=== PATIENT | female | born 2000 | race Caucasian/White ===

== ENCOUNTER → 2022-04-06 10:24 | Outpatient (BNVA) | payer BC, MEDICAID, SELFPAY | PROVIDERS: Visit Provider Nurse Practitioner Family | DX: Z30.019 Encounter for initial prescription of contraceptives, unspecified (principal) | CPT/HCPCS: 81025 ==

== ENCOUNTER → 2022-06-06 09:42 | Outpatient (BNVA) | payer BC, MEDICAID, SELFPAY | PROVIDERS: PCP Nurse Practitioner Family; Visit Provider Nurse Practitioner Family | DX: M25.531 Pain in right wrist (principal); M25.431 Effusion, right wrist; M25.562 Pain in left knee; M25.469 Effusion, unspecified knee; G89.29 Other chronic pain | CPT/HCPCS: 80053; 84443; 85025; 85651; 86140; 86160; 86162; 86235; 86255; 86376; 86431 ==

== ENCOUNTER 2022-06-07 14:59 | Outpatient (CLI) | payer BC, MEDICAID, SELFPAY ==
--- NOTE | 2022-06-07 15:14 | XRR_ITS ---
PROCEDURE INFORMATION: Exam: XR Right Wrist Exam date and time: 06/07/2022 3:23 PM Age: 22 years old Clinical indication: Right; Patient HX: RT wrist pain for 1-2 months, lt knee pain swelling for 4-5 months, no known trauma; Additional info: M25.531 - pain in right wrist TECHNIQUE: Imaging protocol: Radiologic exam of the right wrist. Views: 3 or more views. COMPARISON: No relevant prior studies available. FINDINGS: Bones/joints: Osseous structures are intact. Negative for fracture. Joint spaces are preserved. Soft tissues: Normal. XR/XR wrist RT min 3V* [id number] IMPRESSION: No acute findings.
--- NOTE | 2022-06-07 15:14 | XRR_ITS ---
PROCEDURE INFORMATION: Exam: XR Left Knee Exam date and time: 06/07/2022 3:23 PM Age: 22 years old Clinical indication: Left; Patient HX: RT wrist pain for 1-2 months, lt knee pain swelling for 4-5 months, no known trauma; Additional info: M25.562 - pain in left knee TECHNIQUE: Imaging protocol: Radiologic exam of the left knee. Views: 3 views. COMPARISON: No relevant prior studies available. FINDINGS: Bones/joints: Osseous structures are intact. Negative for fracture. Joint spaces are preserved. Joint effusion is present. Soft tissues: Normal. XR/XR knee LT 3V* [id number] IMPRESSION: No acute osseous abnormalities. Joint effusion present.
== END 2022-06-07 15:00 | disposition home or self-care (01) ==
PROVIDERS: PCP Nurse Practitioner Family; Visit Provider Nurse Practitioner Family
DX: M25.431 Effusion, right wrist (principal); M25.531 Pain in right wrist; G89.29 Other chronic pain; M25.469 Effusion, unspecified knee; M25.562 Pain in left knee; M25.462 Effusion, left knee
CPT/HCPCS: 73110; 73562

== ENCOUNTER 2022-07-21 13:10 | Outpatient (CLI) | payer BC, MEDICAID, SELFPAY ==
--- NOTE | 2022-07-21 13:30 | MR_ITS ---
WS: [id number] MRI LEFT KNEE NONCONTRAST TECHNIQUE: Axial PD, coronal PD fat sat, coronal PD, sagittal PD, and sagittal PD fat-sat images obta ined. CLINICAL INFORMATION: pain COMPARISON: None. FINDINGS: Palpable marker overlying the lateral LEFT thigh. Deep to the palpable marker is normal underlying so ft tissues and subcutaneous fat. No suspicious underlying abnormalities in this area. Distal quadriceps and patella tendons are intact. Hypertrophic patella. Moderate suprapatellar effusi on. Normal ACL and PCL. Prepatellar and infrapatellar soft tissue edema. Subcutaneous edema about the knee. Mild chronic thinning of the medial and lateral meniscus worse involving the medial meniscus. No acute appearing meniscal tears. Fibula head is normal in appearance. Normal medial and lateral col lateral ligaments. Normal femoral condyles and tibial plateau. Normal popliteal fossa. MR/MR knee LT wo con* [id number] IMPRESSION: 1. Normal subcutaneous soft tissues and subcutaneous fat deep to the palpable marker in distal LEFT thigh. No underlying lesions. 2. Moderate suprapatellar effusion with soft tissue edema about the joint line . Prepatellar and infrapatellar soft tissue edema. 3. Mild chronic thinning of the medial and lateral meniscus. No acute appearin g meniscal tears. 4. Normal ACL and PCL. 5. Mild chondromalacia patella. 6. Medial and lateral collateral ligaments are intact. 7. No other acute findings. Outbridge grading:
== END 2022-07-21 13:11 | disposition home or self-care (01) ==
LOC: RAD 13:15
PROVIDERS: PCP Nurse Practitioner Family; Visit Provider Orthopaedic Surgery
DX: M25.562 Pain in left knee (principal); M25.462 Effusion, left knee; M22.42 Chondromalacia patellae, left knee
CPT/HCPCS: 73721

== ENCOUNTER → 2022-09-19 08:31 | Outpatient (BNVA) | payer BC, MEDICAID, SELFPAY | PROVIDERS: PCP Nurse Practitioner Family; Referring Provider Nurse Practitioner Family; Visit Provider Nurse Practitioner Women's Health | DX: E66.9 Obesity, unspecified (principal); N92.6 Irregular menstruation, unspecified; Z12.4 Encounter for screening for malignant neoplasm of cervix | CPT/HCPCS: 81025; 82306; 83036; 84146; 84402; 84443; 88175 ==

== ENCOUNTER → 2022-09-25 11:40 | Outpatient (BNVA) | payer BC, MEDICAID, SELFPAY | PROVIDERS: PCP Nurse Practitioner Family; Visit Provider Internal Medicine Rheumatology | DX: M45.6 Ankylosing spondylitis lumbar region (principal); Z79.899 Other long term (current) drug therapy; M19.90 Unspecified osteoarthritis, unspecified site | CPT/HCPCS: 85651; 86140; 86200; 86812 ==

== ENCOUNTER → 2022-10-03 10:20 | Outpatient (BNVA) | payer BC, MEDICAID, SELFPAY | PROVIDERS: PCP Nurse Practitioner Family; Visit Provider Nurse Practitioner Women's Health | DX: Z32.00 Encounter for pregnancy test, result unknown (principal) | CPT/HCPCS: 84702 ==

== ENCOUNTER → 2022-10-05 11:45 | Outpatient (BNVA) | payer BC, MEDICAID, SELFPAY | PROVIDERS: PCP Nurse Practitioner Family; Visit Provider Nurse Practitioner Women's Health | DX: E28.2 Polycystic ovarian syndrome (principal) | CPT/HCPCS: 84702 ==

== ENCOUNTER 2022-10-18 13:06 | Emergency (ER) | payer BC, MEDICAID, SELFPAY ==
[2022-10-18 13:13] VITALS: BP 136/81; PULSE 90; RESP 18; TEMP 36.4; O2SAT 97; BMI 38.4
[2022-10-18 13:53] LABS: Basophils # 0.1 10^3/uL (0.0-0.1); Basophils % 0.8 %; Eosinophils # 0.2 10^3/uL (0.0-0.8); Eosinophils % 3.2 %; Hematocrit 44.4 % (37.0-47.0); Hemoglobin 14.6 g/dL (11.5-15.3); Lymphocytes # 1.5 10^3/uL (0.8-4.8); Lymphocytes % 23.4 %; Mean Corpuscular HGB Conc 32.9 g/dL (30.0-36.0); Mean Corpuscular Hemoglobin 28.2 pg (28.0-34.0); Mean Corpuscular Volume 85.7 fl (81-99); Mean Platelet Volume 10.4 fL (7.4-10.4); Monocytes # 0.6 10^3/uL (0.2-0.9); Monocytes % 9.3 %; Neutrophils # 4.15 10^3/uL (1.8-7.7); Neutrophils % 62.8 %; Nucleated Red Blood Cells % 0 %; Platelet Count 321 10^3/cmm (130-400); Red Blood Count 5.18 10^6/uL (4.1-5.3); Red Cell Distribution Width 11.8 % (12.1-15.1); White Blood Count 6.6 10^3/uL (4.0-10.0)
[2022-10-18 14:13] LABS: Alanine Aminotransferase 18 U/L (0-33); Albumin Level 4.2 g/dL (3.5-5.2); Alkaline Phosphatase 89 U/L (35-105); Anion Gap 14.3 (5-19); Aspartate Amino Transferase 15 U/L (0-32); Blood Urea Nitrogen 6 mg/dL (6-20); Calcium 9.3 mg/dL (8.5-10.5); Carbon Dioxide 25 mmol/L (22-29); Chloride 102 mmol/L (98-107); Globulin 2.4 g/dL (1.3-4.6); Glucose 76 mg/dL (65-115); Osmolality Calculated 280 mOsm/kg (285-295); Potassium 4.3 mmol/L (3.5-5.1); Sodium 137 mmol/L (136-145); Total Bilirubin 0.3 mg/dL (0.15-1.2); Total Protein 6.6 g/dL (6.6-8.7)
[2022-10-18 14:18] LABS: Troponin T (5th) Once 6 ng/L (0-10)
[2022-10-18 15:05] VITALS: BP 141/69; PULSE 86; RESP 16; O2SAT 96
--- NOTE | 2022-10-18 15:27 | US_ITS ---
WS: [id number] OB ultrasound, 10/18/2022 Clinical Data: for ectopic , lower abd pain Comparison: None. Findings: There is a single interuterine . heart rate is 131 beats per minute. There is a yolk sac present. The cervical length is 3.89 cm and is closed. The crown-rump length christian ured 0.9 cm. There is a small subchorionic bleed. The estimated gestational age 6w6d is with an SHASHI of approximately 06/07/2023. The left ovary measured 2.1 cm x 2.4 cm x 4.0 cm. The right ovary measured 3.7 cm x 3.6 cm x 4.5 cm. There is a small right ovarian cyst. No ovarian cy st or masses are seen. There is minimal fluid in the cul-de-sac. US/US OB <=14 wk fetus w transvag Impression: 1. Single interuterine . 2. Estimated gestational age of 6w6d with an SHASHI of 06/07/2023. 3. heart rate 131 beats per minute.
[2022-10-18 15:32] LABS: HCG Qualitative Urine. Positive (Negative)
[2022-10-18 15:39] LABS: Add Urine Microscopic? YES; Bacteria Urine 1+ /hpf; Bilirubin Urine Neg (Negative); Blood Urine Neg (Negative); Glucose Urine UA Norm (Normal); Ketones Urine Negative (Negative); Leukocyte Esterase Urine 2+ (Negative); Nitrate Urine Negative (Negative); Protein Urine Neg (Negative); RBC Urine 0-4 /hpf (0-2); Squamous Epithelial Cell Urine 25-40 /hpf (0-5); Urine Color Yellow (Yellow); Urobilinogen Urine 1 mg/dL (Negative); WBC Urine 15-25 /hpf (0-5); pH Urine 6 (5-7)
[2022-10-18 15:40] LABS: Add Urine Culture? No
--- NOTE | 2022-10-18 16:56 | W.ED.ABDPA2 ---
HPI - Abdominal Pain General: Chief Complaint: Abdominal Pain Stated Complaint: 8 wks preg/abd pain/chest pain/dizziness Time Seen by Provider: 10/18/22 13:34 History of Present Illness: 22-year-old female who is G2, P0 with an intrauterine around 6 weeks presents emergency room with multiple vague complaint including dizziness, chest pain and abdominal pain within the past 3 days rest pain with movement. Described abdominal pain as sharp sensation mostly right lower quadrant with severity of 5 out of 10. Denies any dysuria, hematuria, vaginal bleeding, leakage of fluid, flank pain or recent fall. Associated Symptoms: Denies chills, coffee ground emesis, fever(s), heartburn, hematemesis, nausea, syncope and vomiting Review of Systems General: Reports: 10 or more systems reviewed and unremarkable except in HPI and below Const: Denies: fever(s), chills or body aches Card: Reports: chest pain; Denies: palpitations, irregular heart rhythm, edema, swelling of feet/ankles, lightheadedness, syncope, pre-syncope, dyspnea on exertion or orthopnea GI: Reports: abdominal pain; Denies: nausea, vomiting, hematemesis, coffee ground emesis, dysphagia or heartburn PFSH ED PFSH: Medical History Elevated C-reactive protein Heart murmur No pertinent past medical history neghx: htn,dm,thyroid,dvt/pe PCP: Kailyn Mcintyre [facility] Oligoarthritis Surgical History Hx of appendectomy Family History Grandmother Breast cancer maternal great grandmother Mother Hypertension Heart disease Denies family history of Colon cancer Ovarian cancer Diabetes Hyperlipidemia Uterine cancer Thyroid disease Stroke Social History Smoking and tobacco status: never smoked Alcohol intake: never Physical Exam Const: COMMON NORMALS: no acute distress, average body habitus, patient oriented x3, no limitations, healthy appearing, alert and well nourished Neck/C-Spine: COMMON NORMALS: full ROM, no lymphadenopathy, supple, no meningeal signs, no JVD, Thyroid normal and No carotid bruits THYROID: Thyroid normal Chest: COMMONS NORMALS: normal inspection of the chest, normal palpation of entire chest wall, normal inspection of the breasts and normal palpation of the breasts CHEST: Yes Symmetrical chest wall rise and Yes tenderness (chest wall tenderness ) Breast/axilla inspection: Yes normal inspection of the breasts BREAST/AXILLA PALPATION: Yes normal palpation of the breasts Cardio: COMMON NORMALS: no JVD GI: COMMON NORMALS: Soft to palpation PALPATION: Yes Soft to palpation, No Firmness to palpation present (GI) and Yes Tenderness to palpation present (GI) Details: RLQ PERCUSSION: normal to percussion Extremity: COMMON NORMALS: normal to inspection, full ROM, capillary refill normal, no joint enlargement, no clubbing, cyanosis or edema, no calf tenderness and no pedal edema Neuro: COMMON NORMALS: patient oriented x3 SENSORIUM/ORIENTATION: Yes alert MENINGEAL SIGNS: Yes no meningeal signs Course Vital Signs: Vital signs: Vital Signs Temperature 97.6 F 10/18/22 13:13 Pulse Rate 86 10/18/22 15:05 Respiratory Rate 16 10/18/22 15:05 Blood Pressure 141/69 10/18/22 15:05 Pulse Oximetry 96 10/18/22 15:05 Oxygen Delivery Me thod Room Air 10/18/22 13:13 MDM - Abdominal Pain Medical Decision Making Patient made comfortable emergency room. Labs were done. Patient was done to rule out ectopic . I discussed the ultrasound finding with the patient. PCP recommended for further evaluation and treatment. Started on oral antibiotics for UTI. Differential Diagnosis Likely abdominal pain, acute appendicitis, calculus of kidney, constipation, diverticulitis, endometriosis, gastroenteritis, pancreatitis and small bowel obstruction (Ectopic , ovarian cyst, pancreatitis) Lab Data 10/18/22 13:44 10/18/22 13:44 Labs/Radiology: Radiology Impressions Obstetrics Ultrasound 10/18/22 15:27 Impression: 1. Single interuterine . 2. Estimated gestational age of 6w6d with an SHASHI of 06/07/2023. 3. heart rate 131 beats per minute. Laboratory Results WBC 6.6 10^3/uL (4.0-10.0) 10/18/22 13:44 RBC 5.18 10^6/uL (4.1-5.3) 10/18/22 13:44 Hgb 14.6 g/dL (11.5-15.3) 10/18/22 13:44 Hct 44.4 % (37.0-47.0) 10/18/22 13:44 MCV 85.7 fl (81-99) 10/18/22 13:44 MCH 28.2 pg (28.0-34.0) 10/18/22 13:44 MCHC 32.9 g/dL (30.0-36.0) 10/18/22 13:44 RDW 11.8 % (12.1-15.1) L 10/18/22 13:44 Plt Count 321 10^3/cmm (130-400) 10/18/22 13:44 MPV 10.4 fL (7.4-10.4) 10/18/22 13:44 Neut % (Auto) 62.8 % 10/18/22 13:44 Lymph % (Auto) 23.4 % 10/18/22 13:44 [place] % (Auto) 9.3 % 10/18/22 13:44 Eos % (Auto) 3.2 % 10/18/22 13:44 Baso % (Auto) 0.8 % 10/18/22 13:44 Neut # (Auto) 4.15 10^3/uL (1.8-7.7) 10/18/22 13:44 Lymph # (Auto) 1.5 10^3/uL (0.8-4.8) 10/18/22 13:44 [place] # (Auto) 0.6 10^3/uL (0.2-0.9) 10/18/22 13:44 Eos # (Auto) 0.2 10^3/uL (0.0-0.8) 10/18/22 13:44 Baso # (Auto) 0.1 10^3/uL (0.0-0.1) 10/18/22 13:44 Nucleated RBC % (auto) 0 % 10/18/22 13:44 Nucleated RBCs # 0.0 /100WBC 10/18/22 13:44 Sodium 137 mmol/L (136-145) 10/18/22 13:44 Potassium 4.3 mmol/L (3.5-5.1) 10/18/22 13:44 Chloride 102 mmol/L (98-107) 10/18/22 13:44 Carbon Dioxide 25 mmol/L (22-29) 10/18/22 13:44 Anion Gap 14.3 (5-19) 10/18/22 13:44 BUN 6 mg/dL (6-20) 10/18/22 13:44 Creatinine 0.6 mg/dL (0.5-0.9) 10/18/22 13:44 GFR Calculation 125.0 mL/min (90-130) 10/18/22 13:44 Glucose 76 mg/dL (65-115) 10/18/22 13:44 Calculated Osmolality 280 mOsm/kg (285-295) L 10/18/22 13:44 Calcium 9.3 mg/dL (8.5-10.5) 10/18/22 13:44 Total Bilirubin 0.3 mg/dL (0.15-1.2) 10/18/22 13:44 AST 15 U/L (0-32) 10/18/22 13:44 ALT 18 U/L (0-33) 10/18/22 13:44 Alkaline Phosphatase 89 U/L (35-105) 10/18/22 13:44 Troponin T Gen 5 ng/L 6 ng/L (0-10) 10/18/22 13:44 Total Protein 6.6 g/dL (6.6-8.7) 10/18/22 13:44 Albumin 4.2 g/dL (3.5-5.2) 10/18/22 13:44 Globulin 2.4 g/dL (1.3-4.6) 10/18/22 13:44 HCG, Qual Positive (Negative) H 10/18/22 15:21 Urine Color Yellow (Yellow) 10/18/22 15:21 Urine Appearance Sl cloudy (CLEAR) A 10/18/22 15:21 Urine pH 6 (5-7) 10/18/22 15:21 Ur Specific [place] 1.020 (1.005-1.030) 10/18/22 15:21 Urine Protein Neg (Negative) 10/18/22 15:21 Urine Glucose (UA) Norm (Normal) 10/18/22 15:21 Urine Ketones Negative (Negative) 10/18/22 15:21 Urine Blood Neg (Negative) 10/18/22 15:21 Urine Nitrate Negative (Negative) 10/18/22 15:21 Urine Bilirubin Neg (Negative) 10/18/22 15:21 Urine Urobilinogen 1 mg/dL (Negative) H 10/18/22 15:21 Ur Leukocyte Esterase 2+ (Negative) H 10/18/22 15:21 Urine RBC 0-4 /hpf (0-2) H 10/18/22 15:21 Urine WBC 15-25 /hpf (0-5) H 10/18/22 15:21 Ur Squamous Epith Cells 25-40 /hpf (0-5) H 10/18/22 15:21 Amorphous Sediment Not Reportable 10/18/22 15:21 Urine Bacteria 1+ /hpf (NONE) H 10/18/22 15:21 Discharge Plan Discharge Patient Disposition: Home Clinical Impression: Abdominal pain in , UTI in , Atypical chest pain Condition: Stable Prescriptions: New Macrobid 100 mg capsule 100 mg PO BID Qty: 20 0RF Discharge Orders: Discharge ED (Routine); Ordered 10/18/22 Ordered By: Philippe Javier Referrals: Georgiana Mcintyre FNP-C [Primary Care Provider] - Discharge Diet: Advance as tolerated Discharge Activity: Resume usual activity Patient Instructions: Abdominal Pain (ED), Opioid Safety, Pain Management Coding Level of Care Code ED Pickling Machine Operator for Laura Stephenson
[2022-10-18 17:00] VITALS: BP 134/89; PULSE 76; RESP 16; O2SAT 98
== END 2022-10-18 17:08 | disposition home or self-care (01) ==
PROVIDERS: Emergency Provider Family Medicine; PCP Nurse Practitioner Family
DX: O23.41 Unspecified infection of urinary tract in pregnancy, first trimester (principal); N39.0 Urinary tract infection, site not specified; Z3A.01 Less than 8 weeks gestation of pregnancy; O26.891 Other specified pregnancy related conditions, first trimester; R10.9 Unspecified abdominal pain; R07.89 Other chest pain
CPT/HCPCS: 76801; 76817; 80053; 81001; 81025; 84484; 85025; 99284

== ENCOUNTER → 2022-10-24 14:00 | Outpatient (BNVA) | payer BC, MEDICAID, SELFPAY | PROVIDERS: PCP Nurse Practitioner Family; Visit Provider Nurse Practitioner Women's Health | DX: Z34.90 Encounter for supervision of normal pregnancy, unspecified, unspecified trimester (principal); Z3A.00 Weeks of gestation of pregnancy not specified | CPT/HCPCS: 81000 ==

== ENCOUNTER → 2022-11-14 14:48 | Outpatient (BNVA) | payer BC, SELFPAY | PROVIDERS: PCP Nurse Practitioner Family; Visit Provider Obstetrics & Gynecology | DX: Z34.00 Encounter for supervision of normal first pregnancy, unspecified trimester (principal); Z3A.00 Weeks of gestation of pregnancy not specified | CPT/HCPCS: 80307; 81000; 82950; 85027; 86592; 86762; 86803; 86850; 86900; 87086; 87340; 87806 ==

== ENCOUNTER → 2022-11-26 13:35 | Outpatient (BNVA) | payer BC, SELFPAY | PROVIDERS: PCP Nurse Practitioner Family; Visit Provider Obstetrics & Gynecology | DX: O46.90 Antepartum hemorrhage, unspecified, unspecified trimester (principal); Z3A.00 Weeks of gestation of pregnancy not specified | CPT/HCPCS: 84702 ==

== ENCOUNTER → 2022-11-28 14:06 | Outpatient (BNVA) | payer BC, SELFPAY | PROVIDERS: PCP Nurse Practitioner Family; Visit Provider Nurse Practitioner Women's Health | DX: O46.90 Antepartum hemorrhage, unspecified, unspecified trimester (principal); Z3A.00 Weeks of gestation of pregnancy not specified | CPT/HCPCS: 76801 ==

== ENCOUNTER → 2022-12-20 13:52 | Outpatient (BNVA) | payer BC, SELFPAY | PROVIDERS: PCP Nurse Practitioner Family; Visit Provider Nurse Practitioner Women's Health | DX: Z34.00 Encounter for supervision of normal first pregnancy, unspecified trimester (principal) | CPT/HCPCS: 81000; 82105 ==

== ENCOUNTER 2022-12-28 15:57 | Emergency (ER) | payer BC, MEDICAID, SELFPAY ==
[2022-12-28 16:10] VITALS: BP 131/82; PULSE 90; RESP 16; TEMP 36.9; O2SAT 98; BMI 37.0
--- NOTE | 2022-12-28 18:36 | USR_ITS ---
PROCEDURE INFORMATION: Exam: US , Limited Exam date and time: 12/28/2022 6:49 PM Age: 22 years old Clinical indication: complicated by abdominal or pelvic pain; Left lower quadrant; Second trimester (14 weeks 0 days to 27 weeks 6 days); Gestational age or lmp: By US 17w3d; ; Additional info: Bleeding TECHNIQUE: Imaging protocol: Real-time ultrasound of the maternal uterus with image documentation. Exam focused on the clinical indication. COMPARISON: US OB <= 14 weeks fetus [id number] 11/28/2022 2:14 PM FINDINGS: Gestation: Single living intrauterine . heart rate: heart rate measures 133 bpm. Placenta: The placenta is posterior fundal. BIOMETRY: Estimated weight: Estimated weight measures 180 g Biparietal diameter (BPD): The biparietal diameter measures 3.82 cm and 17 weeks 5 days Head circumference (HC): The head circumference measures 14.45 cm and 17 weeks 5 days Femur length (FL): Femoral length measures 2.32 cm and 17 weeks 0 days MATERNAL: Cervix: The cervix is closed and measures 3.2 cm. Right ovary/adnexa: Right ovary measures 2.5 x 1.7 x 1.6 cm with vascular flow. Left ovary/adnexa: The left ovary measures 2.2 x 2.3 x 2.6 cm with vascular flow. Intraperitoneal space: No free fluid in the cul-de-sac. US/US OB limited [id number] IMPRESSION: 1. Single living intrauterine . 2. Cervix is closed measuring up to 3.2 cm in length. 3. The placenta is posterior fundal in location. 4. The ovaries are unremarkable with vascular flow.
--- NOTE | 2022-12-28 18:38 | W.ED.PREGNAN ---
HPI - General: Chief complaint: Vaginal Bleeding Stated complaint: 17 wks/vaginal bleeding Time Seen by Provider: 12/28/22 18:36 History of Present Illness: 22-year-old female comes in today for complaints of spotting after urination. Patient reports when she wipes after urinating she notices blood. Patient appears nontoxic. Patient reports no chills. Patient does have some nausea. Patient is approximately 17 weeks . This is patient's second no live births, 1 prior miscarriage. Patient has a history of appendicitis with removal of her appendix. Patient has a history of a subchorionic hemorrhage with this . Patient's blood type is a positive. Last time patient ate was at 10:00. Patient denies any chronic medical problems or routine medications. Associated symptoms: Reports nausea Related Data: : 2 Para: 0 Total number of abortions (spontaneous and elective): 1 Review of Systems General: Reports: 10 or more systems reviewed and unremarkable except in HPI and below Const: Denies: fever(s) Card: Denies: chest pain Resp: Denies: dyspnea GI: Reports: nausea : Reports: vaginal bleeding (Spotting) and pelvic pain (Lower abdominal cramping) PFS ED PFSH: Medical History Elevated C-reactive protein Heart murmur No pertinent past medical history neghx: htn,dm,thyroid,dvt/pe PCP: Kailyn Mcintyre [facility] Oligoarthritis Surgical History Hx of appendectomy Family History Grandmother Breast cancer maternal great grandmother Mother Hypertension Heart disease Denies family history of Colon cancer Ovarian cancer Diabetes Hyperlipidemia Uterine cancer Thyroid disease Stroke Female Reproductive History: : 2 Physical Exam Const: COMMON NORMALS: alert HENMT: COMMON NORMALS: normocephalic HEAD & SCALP: normocephalic Neck/C-Spine: COMMON NORMALS: full ROM Resp: COMMON NORMALS: normal respiratory effort and clear to auscultation bilaterally AUSCULTATION: clear to auscultation bilaterally Cardio: COMMON NORMALS: regular rate and regular rhythm RATE: regular rate RHYTHM: regular rhythm GI: COMMON NORMALS: Soft to palpation PALPATION: Yes Soft to palpation Back/Pelvis: COMMON NORMALS: thoracic and lumbar spine normal to inspection Extremity: COMMON NORMALS: normal to inspection Neuro: SENSORIUM/ORIENTATION: Yes alert Skin: COMMON NORMALS: turgor normal GENERAL SKIN EXAM: turgor normal Course Vital Signs: Vital signs: Vital Signs Temperature 98.4 F 12/28/22 16:10 Pulse Rate 90 12/28/22 16:10 Respiratory Rate 16 12/28/22 16:10 Blood Pressure 131/82 12/28/22 16:10 Pulse Oximetry 98 12/28/22 16:10 Oxygen Delivery Me thod Room Air 12/28/22 16:10 MDM - OB/Uterine Contractions Medical Decision Making 22-year-old female comes in today for complaints of noticing blood when she wipes after urination. Patient also has had some lower abdominal cramping. Patient has a history of subchorionic hemorrhage with this . Patient is approximately 17 weeks . Patient appears nontoxic. Bowel sounds are present. Skin is warm and dry. No CVA tenderness. Vital signs are normal. Differential diagnosis includes not limited to subchorionic hemorrhage, UTI, placenta previa, threatened miscarriage. Ultrasound noted a single live intrauterine with no other abnormalities. Urinalysis had positive leukocyte esterases, CBC was unremarkable. Believe patient probably has some mild cystitis. Patient was given 1 g Rocephin IM and will continue on cephalexin for 3 more days. Patient was recommended to follow-up with primary care or PERSONNEL QUALITY ASSURANCE AUDITOR in 1 week for recheck of urine. Patient was also encouraged to drink plenty of water and fluids. Discussed need to return to ER for worsening symptoms such as high fever, inability to hold fluids down, or increasing bleeding. Patient reported understanding and agreed to plan. Lab Data 12/28/22 19:19 12/28/22 19:19 Radiology Impressions Obstetrics Ultrasound 12/28/22 18:36 IMPRESSION: 1. Single living intrauterine . 2. Cervix is closed measuring up to 3.2 cm in length. 3. The placenta is posterior fundal in location. 4. The ovaries are unremarkable with vascular flow. Laboratory Results WBC 10.07 10^3/uL (3.29-11.43) 12/28/22 19:19 RBC 4.89 10^6/uL (3.85-5.65) 12/28/22 19:19 Hgb 14.60 g/dL (11.27-16.99) 12/28/22 19:19 Hct 41.5 % (36-47) 12/28/22 19:19 MCV 84.9 fl (85-98) L 12/28/22 19:19 MCH 29.9 pg (27-33) 12/28/22 19:19 MCHC 35.2 g/dL (30-55) 12/28/22 19:19 RDW 11.9 % (12.1-15.1) L 12/28/22 19:19 Plt Count 313 10^3/cmm (157-399) 12/28/22 19:19 MPV 11.1 fL (7.4-10.4) H 12/28/22 19:19 Neut % (Auto) 74.0 % 12/28/22 19:19 Lymph % (Auto) 16.3 % 12/28/22 19:19 [place] % (Auto) 6.6 % 12/28/22 19:19 Eos % (Auto) 2.3 % 12/28/22 19:19 Baso % (Auto) 0.3 % 12/28/22 19:19 Neut # (Auto) 7.46 10^3/uL (1.8-7.7) 12/28/22 19:19 Lymph # (Auto) 1.6 10^3/uL (0.8-4.8) 12/28/22 19:19 [place] # (Auto) 0.7 10^3/uL (0.2-0.9) 12/28/22 19:19 Eos # (Auto) 0.2 10^3/uL (0.0-0.8) 12/28/22 19:19 Baso # (Auto) 0.0 10^3/uL (0.0-0.1) 12/28/22 19:19 Nucleated RBC % (auto) 0 % 12/28/22 19:19 Nucleated RBCs # 0.0 /100WBC 12/28/22 19:19 Urine Color Yellow (Yellow) 12/28/22 19:11 Urine Appearance Clear (CLEAR) 12/28/22 19:11 Urine pH 5 (5-7) 12/28/22 19:11 Ur Specific [place] 1.025 (1.005-1.030) 12/28/22 19:11 Urine Protein Neg (Negative) 12/28/22 19:11 Urine Glucose (UA) Norm (Normal) 12/28/22 19:11 Urine Ketones 2+ (Negative) H 12/28/22 19:11 Urine Blood Neg (Negative) 12/28/22 19:11 Urine Nitrate Negative (Negative) 12/28/22 19:11 Urine Bilirubin Neg (Negative) 12/28/22 19:11 Urine Urobilinogen Neg mg/dL (Negative) 12/28/22 19:11 Ur Leukocyte Esterase Trace (Negative) H 12/28/22 19:11 Amorphous Sediment Not Reportable 12/28/22 19:11 All radiology interpretation(s) finalized by discharge Discharge Plan Discharge Patient Disposition: Home Clinical Impression: Cystitis, 17 weeks gestation of Condition: Stable Prescriptions: New cephalexin 500 mg capsule 500 mg PO BID 3 Days Qty: 6 0RF No Action Gummies 400 mcg-35 mg- 25 mg-5 mg tablet,chewable 1 tab PO DAILY Discharge Orders: Discharge ED (Routine); Ordered 12/28/22 Ordered By: Tone Cesar Referrals: Georgiana Mcintyre FNP-C [Primary Care Provider] - Discharge Diet: Usual diet Discharge Activity: Increase activity as tolerated Patient Instructions: Urinary Tract Infection in (ED) Activity Restrictions/Additional Instructions: Drink plenty of water and fluids. Pelvic rest until pain resolves. Take cephalexin 500 mg 1 tablet/capsule 2 times a day for 3 days. Follow-up with PERSONNEL QUALITY ASSURANCE AUDITOR or primary care in 1 week for recheck. Return to ED for worsening symptoms such as severe abdominal pain, fever greater than 100.4, inability to hold fluids down, bleeding greater than 1 pad an hour. Coding Level of Care Code ED Electric Brain Wave Equipment Mechanic for Laura Stephenson
[2022-12-28] MEDS: ondansetron 4 MG Tablet PO (19:07)
[2022-12-28 19:24] LABS: Bilirubin Urine Neg (Negative); Blood Urine Neg (Negative); Glucose Urine UA Norm (Normal); Ketones Urine 2+ (Negative); Nitrate Urine Negative (Negative); Protein Urine Neg (Negative); Specific Gravity, Urine 1.025 (1.005-1.030); Urine Appearance Clear (CLEAR); Urine Color Yellow (Yellow); Urobilinogen Urine Neg (Negative); pH Urine 5 (5-7)
[2022-12-28 19:25] LABS: Add Urine Microscopic? YES; Leukocyte Esterase Urine Trace (Negative)
[2022-12-28 19:34] LABS: Basophils % 0.3 %; Eosinophils # 0.2 10^3/uL (0.0-0.8); Eosinophils % 2.3 %; Hematocrit 41.5 % (36-47); Lymphocytes # 1.6 10^3/uL (0.8-4.8); Lymphocytes % 16.3 %; Mean Corpuscular HGB Conc 35.2 g/dL (30-55); Mean Corpuscular Hemoglobin 29.9 pg (27-33); Mean Corpuscular Volume 84.9 fl (85-98); Mean Platelet Volume 11.1 fL (7.4-10.4); Monocytes # 0.7 10^3/uL (0.2-0.9); Monocytes % 6.6 %; Neutrophils # 7.46 10^3/uL (1.8-7.7); Nucleated Red Blood Cells % 0 %; Platelet Count 313 10^3/cmm (157-399); Red Blood Count 4.89 10^6/uL (3.85-5.65); Red Cell Distribution Width 11.9 % (12.1-15.1); White Blood Count 10.07 10^3/uL (3.29-11.43)
[2022-12-28 19:44] LABS: Add Urine Culture? No; Bacteria Urine 1+ /hpf; Mucus Urine 2+ /hpf; RBC Urine 0-4 /hpf (0-2); Squamous Epithelial Cell Urine 15-25 /hpf (0-5)
[2022-12-28] MEDS: cefTRIAXone 1,000 MG in water for injection-sterile 2.1 ML 1 MG IM (19:58)
[2022-12-28 20:04] LABS: Alanine Aminotransferase 12 U/L (0-33); Albumin Level 4.1 g/dL (3.5-5.2); Alkaline Phosphatase 80 U/L (35-105); Anion Gap 14.8 (5-19); Aspartate Amino Transferase 14 U/L (0-32); Blood Urea Nitrogen 5 mg/dL (6-20); Calcium 9.2 mg/dL (8.5-10.5); Carbon Dioxide 23 mmol/L (22-29); Chloride 102 mmol/L (98-107); Glomerular Filtration Rate 154.3 mL/min (90-130); Glucose 79 mg/dL (65-115); Osmolality Calculated 278 mOsm/kg (285-295); Potassium 3.8 mmol/L (3.5-5.1); Sodium 136 mmol/L (136-145); Total Bilirubin 0.3 mg/dL (0.15-1.2); Total Protein 7.1 g/dL (6.6-8.7)
== END 2022-12-28 20:01 | disposition home or self-care (01) ==
PROVIDERS: Emergency Provider Nurse Practitioner Family; PCP Nurse Practitioner Family
DX: O23.12 Infections of bladder in pregnancy, second trimester (principal); Z3A.17 17 weeks gestation of pregnancy
CPT/HCPCS: 36415; 76815; 80053; 81001; 84315; 84702; 85025; 96372; 99284; J0696; Q0162

== ENCOUNTER → 2023-01-14 09:27 | Outpatient (BNVA) | payer BC, MEDICAID, SELFPAY | PROVIDERS: PCP Nurse Practitioner Family; Visit Provider Nurse Practitioner Women's Health | DX: Z34.92 Encounter for supervision of normal pregnancy, unspecified, second trimester (principal); Z3A.19 19 weeks gestation of pregnancy | CPT/HCPCS: 76805 ==

== ENCOUNTER → 2023-02-18 12:00 | Outpatient (BNVA) | payer BC, MEDICAID, SELFPAY | PROVIDERS: PCP Nurse Practitioner Family; Visit Provider Nurse Practitioner Women's Health | DX: Z34.00 Encounter for supervision of normal first pregnancy, unspecified trimester (principal); Z3A.00 Weeks of gestation of pregnancy not specified | CPT/HCPCS: 81000; 87491; 87591 ==

== ENCOUNTER → 2023-04-02 14:00 | Outpatient (BNVA) | payer BC, MEDICAID, SELFPAY | PROVIDERS: PCP Nurse Practitioner Family; Visit Provider Obstetrics & Gynecology | DX: Z34.00 Encounter for supervision of normal first pregnancy, unspecified trimester (principal) | CPT/HCPCS: 81000; 82950; 85025 ==

== ENCOUNTER 2023-04-08 17:45 | Outpatient (CLI) | payer BC, MEDICAID, SELFPAY ==
[2023-04-08] VITALS (13 sets, daily range): BP systolic 117–143; BP diastolic 61–85; PULSE 90–101; RESP 16–18; TEMP 35.8–36.3; BMI 39.3
[2023-04-08 18:22] LABS: Specific Gravity, Urine 1.015 (1.005-1.030); Urine Appearance Clear (CLEAR); Urine Color Straw (Yellow); pH Urine 6.5 (5-7)
[2023-04-08 18:23] LABS: Bilirubin Urine Neg (Negative); Blood Urine 2+ (Negative); Glucose Urine UA Norm (Normal); Ketones Urine Negative (Negative); Leukocyte Esterase Urine 2+ (Negative); Nitrate Urine Negative (Negative); Protein Urine Neg (Negative); Urobilinogen Urine Norm (Negative)
[2023-04-08 18:25] LABS: Add Urine Culture? Yes; Bacteria Urine TRACE /hpf; RBC Urine RARE /hpf (0-2); Squamous Epithelial Cell Urine 0-4 /hpf (0-5)
--- NOTE | 2023-04-08 18:57 | P.TNLD_ITS ---
OB L&D Triage Visit Information: Date of evaluation: 04/08/23 Comments/Additional reason(s) for visit: 22-year-old female G1, P0 at 31.3 weeks gestation, SHASHI 06/07/2023 seen on labor and delivery triage with complaints of blood noted in the stool. She admits to good movement, denies leakage of fluid or pelvic pain. Patient is currently on amoxicillin for a dental abscess. She has history of having a subchorionic hemorrhage that had some spotting early in . Pelvic exam cervix closed no blood noted in the vaginal vault. Abdomen is soft nontender to palpation. No suprapubic pressure or CVA tenderness. Reviewed urine analysis?+2 blood, pH 6.5, pH 1.015, negative glucose, leukoesterase +2 WBCs 5-10 Reviewed hematuria with leukoesterase indicating a UTI. Will treat with IV antibiotics and continue her amoxicillin which she is currently taking. Evaluation: Baseline heart rate: 130 Variability: Average (6-10) monitor accelerations: Present 15x15 monitor decelerations: None Cervical dilation (cm): 0 Laboratory results: Laboratory Tests 04/08/23 18:00 Urine Color Straw Urine Appearance Clear Urine pH 6.5 Ur Specific Gravit y 1.015 Urine Protein Neg Urine Glucose (UA) Norm Urine Ketones Negative Urine Blood 2+ H Urine Nitrate Negative Urine Bilirubin Neg Urine Urobilinogen Norm Ur Leukocyte Luciana ase 2+ H Urine RBC Rare Urine WBC 5-10 H Ur Squamous Epith Cells 0-4 H Amorphous Sediment Not Reportable Urine Bacteria Trace Vital signs: Vital Signs - 24 hr 04/08/23 18:05 04/08/23 18:25 04/08/23 18:45 Temperature 96.4 F L Pulse Rate 96 97 94 Blood Pressure 133/74 136/74 140/82 Care SHASHI Calculator Estimated Delivery Date Method Current WG Current Estimate 06/07/23 Ultrasound #1 31w 3d Other Estimates 05/08/23 LMP (Uncertain) 35w 5d Specific Issues/Plans * PCOS- needs early GCT * OBESITY * SUBCHORHIONIC BLEED Final Diagnosis Final Diagnosis (1) 31 weeks gestation of : Status: Acute Code(s): Z3A.31 - 31 weeks gestation of (2) UTI (urinary tract infection): Status: Acute Code(s): N39.0 - Urinary tract infection, site not specified (3) Subchorionic hematoma, antepartum: Status: Acute Code(s): O41.8X90 - Other specified disorders of amniotic fluid and membranes, unspecified trimester, not applicable or unspecified; O46.8X9 - Other antepartum hemorrhage, unspecified trimester (4) Supervision of normal first : Status: Acute Code(s): Z34.00 - Encounter for supervision of normal first , unspecified trimester Other Information/Follow up Plan. 1. IV fluid with Ancef 2 g IV piggyback 2. Continue amoxicillin as prescribed Coding Level of Care Code Acute Code for Chg Fwd Diagnoses 31 weeks gestation of Z3A.31 UTI (urinary tract infection) N39.0 Subchorionic hematoma, antepartum O41.8X90; O46.8X9 Supervision of normal first Z34.00
[2023-04-08] MEDS: lactated ringers 1,000 ML 999 ML IV (19:54)
[2023-04-08] MEDS: ceFAZolin 2,000 MG in sodium chloride 0.9% (plus) 50 ML 100 MG IV (19:54)
== END 2023-04-08 21:43 | disposition home or self-care (01) ==
LOC: OPOB 17:55 → OBGYN 17:56
PROVIDERS: Absent Provider Obstetrics & Gynecology; PCP Nurse Practitioner Family; Visit Provider Obstetrics & Gynecology
DX: O41.8X93 Other specified disorders of amniotic fluid and membranes, unspecified trimester, fetus 3 (principal); O46.8X3 Other antepartum hemorrhage, third trimester; Z3A.31 31 weeks gestation of pregnancy; N39.0 Urinary tract infection, site not specified
CPT/HCPCS: 59025; 81001; 87086; 99211; J0690; J7120

== ENCOUNTER → 2023-04-23 08:00 | Outpatient (BNVA) | payer BC, MEDICAID, SELFPAY | PROVIDERS: PCP Nurse Practitioner Family; Visit Provider Obstetrics & Gynecology | DX: Z34.00 Encounter for supervision of normal first pregnancy, unspecified trimester (principal); Z3A.00 Weeks of gestation of pregnancy not specified | CPT/HCPCS: 81000; 82951; 82952 ==

== ENCOUNTER → 2023-05-14 13:19 | Outpatient (BNVA) | payer BC, MEDICAID, SELFPAY | PROVIDERS: PCP Nurse Practitioner Family; Visit Provider Obstetrics & Gynecology | DX: Z34.93 Encounter for supervision of normal pregnancy, unspecified, third trimester (principal); Z3A.00 Weeks of gestation of pregnancy not specified; Z3A.35 35 weeks gestation of pregnancy | CPT/HCPCS: 76816; 84315 ==

== ENCOUNTER 2023-06-02 22:15 | Outpatient (CLI) | payer BC, MEDICAID, SELFPAY ==
[2023-06-02] VITALS (7 sets, daily range): BP systolic 114–140; BP diastolic 58–80; PULSE 92–114; TEMP 35.9; BMI 36.9
[2023-06-03] VITALS (7 sets, daily range): BP systolic 119–136; BP diastolic 63–72; PULSE 90–99; RESP 16; TEMP 35.9
== END 2023-06-03 01:05 | disposition home or self-care (01) ==
LOC: OPOB 22:19 → OBGYN 22:20
PROVIDERS: PCP Nurse Practitioner Family; Visit Provider Obstetrics & Gynecology
DX: O26.899 Other specified pregnancy related conditions, unspecified trimester (principal); Z3A.00 Weeks of gestation of pregnancy not specified; R10.9 Unspecified abdominal pain
CPT/HCPCS: 59025; 99211

== ENCOUNTER 2023-06-04 23:58 | Inpatient (IN) | payer BC, MEDICAID, SELFPAY ==
[2023-06-04] VITALS (68 sets, daily range): BP systolic 101–159; BP diastolic 52–95; PULSE 82–121; RESP 17; TEMP 36.2–36.4; O2SAT 97–100; BMI 40.3
[2023-06-04 14:42] LABS: Basophils % 0.4 %; Eosinophils # 0.1 10^3/uL (0.0-0.8); Hematocrit 40.1 % (36-47); Lymphocytes # 1.5 10^3/uL (0.8-4.8); Lymphocytes % 13.4 %; Mean Corpuscular HGB Conc 34.2 g/dL (30-55); Mean Corpuscular Hemoglobin 28.8 pg (27-33); Mean Corpuscular Volume 84.2 fl (85-98); Mean Platelet Volume 11.7 fL (7.4-10.4); Monocytes # 1.1 10^3/uL (0.2-0.9); Monocytes % 9.5 %; Neutrophils # 8.29 10^3/uL (1.8-7.7); Neutrophils % 75.2 %; Nucleated Red Blood Cells % 0 %; Platelet Count 366 10^3/cmm (157-399); Red Blood Count 4.76 10^6/uL (3.85-5.65); Red Cell Distribution Width 12.8 % (12.1-15.1); White Blood Count 11.03 10^3/uL (3.29-11.43)
[2023-06-04] MEDS: ampicillin 2,000 MG in sodium chloride 0.9% (plus) 50 ML 100 MG IV (15:07)
[2023-06-04] MEDS: oxytocin 30 UNIT/500 ML BAG IV (15:08)
[2023-06-04] MEDS: dextrose 5%-lactated ringers 1,000 ML 125 ML IV ×2 (15:08→18:46)
[2023-06-04] MEDS: ampicillin 1,000 MG in sodium chloride 0.9% (plus) 50 ML 100 MG IV ×2 (18:46→22:34)
[2023-06-04] MEDS: lactated ringers 1,000 ML 999 ML IV (21:05)
--- NOTE | 2023-06-04 22:24 | ANES.PREANE2 ---
Pre-Anesthetic Assessment Height/Weight: Height 1.63 m Weight 106.594 kg Temp Pulse BP Pulse Ox O2 Del Method 97.2 F L 115 H 125/67 100 Room Air 06/04/23 21:47 06/04/23 22:22 06/04/23 22:20 06/04/23 22:22 06/04/23 14:30 Preop Diagnosis: Labor pain LUIGI Was Beta Baldo taken within 24 hours: N/A Was Clonidine taken within 24 hours: N/A Social No alcohol and No tobacco Exam alert, oriented x 3, clear to auscultation bilaterally and regular rate & rhythm Airway Submandibular: within normal limits Cervical ROM: within normal limits Mallampati: Class II Dentition: full History/ROS No significant history except as noted and No significant complaints Pulmonary None reported CV/HEM Murmur None reported Hepatic None reported GI None reported Metabolic None reported Musc/skel None reported Neuropsych None reported Anesthetic Plan ASA status: 2 Anesthesia: Anesthesia Evaluation and Regional (specify below) (LUIGI) Risk of > 500 ml blood loss (7ml/kg in children): No Medications/Allergies Home Medications Medication Instructions Recorded Confirmed Last Taken Type PNV 153-FA 400 mcg-om3 35 mg-dha 1 tab PO DAILY 10/24/22 06/04/23 1 Day Ago History 25 mg-epa 5 mg-fish oil chew ~04/07/23 tablet ( Gummies) Allergies Allergy/AdvReac Type Severity Reaction Status Date / Time No Known Allergies Allergy Verified 05/28/23 13:45 Current Medications Generic Name Dose Route Start Last Admin Trade Name Souravq PRN Reason Stop Dose Admin Dextrose/Lactated Ringer's 1,000 mls @ 125 mls/hr 06/04/23 14:30 06/04/23 18:46 Dextrose 5%-Lactated Ringers IV 125 mls/hr .Q8H LIANA Administration Ampicillin Sodium 1,000 mg/ 50 mls @ 100 mls/hr 06/04/23 18:30 06/04/23 18:46 Sodium Chloride IV 100 mls/hr Q4H LIANA Administration Protocol Oxytocin 30 unit in 500 mls @ 1 mls/hr 06/04/23 15:00 06/04/23 17:25 Pitocin IV 12 milliunit/min .Q24H LIANA 12 mls/hr Titration Protocol 1 MILLIUNIT/MIN PFSH Anesthesia Medical History Elevated C-reactive protein Oligoarthritis No pertinent past medical history neghx: htn,dm,thyroid,dvt/pe PCP: Kailyn Mcintyre [facility] Heart murmur Surgical History Hx of appendectomy Family History Grandmother Breast cancer maternal great grandmother Mother Hypertension Heart disease Denies family history of Colon cancer Ovarian cancer Diabetes Hyperlipidemia Uterine cancer Thyroid disease Stroke Female Reproductive History : 1 Data Anesthesia 06/04/23 14:15 Short CBC 06/04/23 Range/Units 14:15 WBC 11.03 (3.29-11.43) 10^3/uL Hgb 13.70 (11.27-16.99) g/dL Hct 40.1 (36-47) % MCV 84.2 L (85-98) fl Plt Count 366 (157-399) 10^3/cmm Neut % (Auto) 75.2 % Neut # (Auto) 8.29 H (1.8-7.7) 10^3/uL Blood Bank 06/04/23 14:15 Blood Type A Positive Rho(D) Type Rh positive Antibody Screen Negative Cardiac Studies: No Data to Display
--- NOTE | 2023-06-04 22:26 | ANES.PROC ---
Anesthesia Procedures Procedure/Date: 06/04/23 Epidural: Time Out Performed: Yes Consents Signed: Procedure Consent Consent: requested by attending/covering physician, from patient, risks and benefits reviewed and patient agrees to proceed Lumbar Level: L3-L4 Epidural position: sitting Epidural procedure: sterile prep of area, 1% lidocaine to numb the area, 18 g needle, negative for paresthesia passed, test dose given, 1.5% xylocaine 1:200k epi (5cc), 0.2% Ropivacaine bolus ml (4cc and Fentanyl 100mcg), no systemic response, sterile dressing applied, L.U.D. no apparent complications and 0.2% Ropiavacaine @ mls/hr (10cc/hour.) Additional Comments: ABHAY at 9cm. cath placed 2.5 cm into epid space. Pt tolerated well.
[2023-06-04] MEDS: ROPivacaine syringe 100 MG/50 ML SYRINGE 10 MG EPIDURAL (22:34)
[2023-06-04] MEDS: ceFAZolin 2,000 MG in sodium chloride 0.9% (plus) 50 ML 100 MG IV (23:54)
[2023-06-04] MEDS: famotidine 20 mg/2 mL INJ IVP (23:57)
[2023-06-04] MEDS: metoclopramide 5 mg/mL SDV 2 mL 10 MG IV (23:57)
[2023-06-04] MEDS: alum-mag-hydroxide-sime 30 mL UDC PO (23:57)
[2023-06-05] VITALS (60 sets, daily range): BP systolic 85–136; BP diastolic 50–78; PULSE 76–109; RESP 15–16; TEMP 36.3–36.5; O2SAT 95–100
[2023-06-05] MEDS: dextrose 5%-lactated ringers 1,000 ML 125 ML IV (01:55)
--- NOTE | 2023-06-05 02:29 | PM.OBGYHP ---
Providers/Chief Complaint Admitting Physician: Demetrio Christianson MD Primary INDUSTRIAL PLANT CUSTODIAN: Demetrio Christianson MD Primary Care Provider: JAIDA Rodriguez Chief Complaint: induction HPI INDUSTRIAL PLANT CUSTODIAN History of Present Illness Denita Weiner is a 23 year old female 23 y.o. G1 EDC June 07, 2023 At 39 w 4 d No complications Admitted for elective induction of labor Patient has been requesting induction of labor due to ?s work schedule No c/o + active movements Had urine culture November 2022 - + GBS, treated Present Details : 1 Para: 0 Labs Rubella: Immune RPR: Negative GBS: Positive Medications/Allergies Home Medications Medication Instructions Recorded Confirmed Last Taken Type PNV 153-FA 400 mcg-om3 35 mg-dha 1 tab PO DAILY 10/24/22 06/24/23 1 Day Ago History 25 mg-epa 5 mg-fish oil chew ~04/07/23 tablet ( Gummies) oxycodone-acetaminophen 10 mg-325 1 tab PO BID PRN pain #20 tabs 06/06/23 06/24/23 Unknown Rx mg tablet (Percocet) norethindrone 1.5 mg-ethinyl 1 tab PO DAILY #84 tabs 06/25/23 Unknown Rx estradiol 30 mcg(21)/iron 75 mg(7) tablet (Junel FE 1.5/30 (28)) Allergies Allergy/AdvReac Type Severity Reaction Status Date / Time No Known Allergies Allergy Verified 06/24/23 09:53 PFSH INDUSTRIAL PLANT CUSTODIAN PFSH: Medical History Elevated C-reactive protein Oligoarthritis No pertinent past medical history neghx: htn,dm,thyroid,dvt/pe PCP: Kailyn Mcintyre [facility] Heart murmur Surgical History Hx of appendectomy Family History Grandmother Breast cancer maternal great grandmother Mother Hypertension Heart disease Denies family history of Colon cancer Ovarian cancer Diabetes Hyperlipidemia Uterine cancer Thyroid disease Stroke History History History 1 Term 1 0 Miscarriages/Ectopic 0 Living Children 1 Care SHASHI Calculator Estimated Delivery Date Method Current WG Current Estimate 06/07/23 Ultrasound #1 42w 6d Other Estimates 05/08/23 LMP (Uncertain) 47w 1d Specific Issues/Plans PCOS- needs early GCT OBESITY SUBCHORHIONIC BLEED Vitals/I&O/Wt Last Vital Signs Temp 97.2 F L 06/04/23 21:47 Pulse 88 06/05/23 02:25 BP 129/73 06/04/23 23:33 Pulse Ox 100 06/05/23 02:25 O2 Del Method Room Air 06/04/23 14:30 06/04/23 06/04/23 06/05/23 14:59 22:59 06:59 Intake Total 1519.233 / 1519.233 Balance 1519.233 / 1519.233 Weight last 48 hrs Weight 235 lb Physical Exam Narrative: Weight 235 lbs, 5?4? VS normal Comfortable, awake, alert HEENT: normal Lungs: clear Cor: RRR Abd: nontender Fundal height 37 cm; cephalic FHTs normal Cervix: 2 -3 cm / -3 / posterior Ext: no edema External monitor: heart tracing with good variability, + accelerations Data 06/05/23 19:55 Results Labs OB ([facility]): Obstetrics US 05/14/23 Blood Type A Positive 06/04/23 Antibody Screen Negative 06/04/23 Hct 35.7 % (36-47) L 06/05/23 Hgb 12.10 g/dL (11.27-16.99) 06/05/23 Rho(D) Type Rh positive 06/04/23 Plt Count 270 10^3/cmm (157-399) 06/05/23 Hep Bs Antigen Non-reactive (Nonreactive) 11/14/22 Hepatitis C Antibody Non-reactive (Nonreactive) 11/14/22 Rubella IgG Antibody 19.3 IU/mL (0.0-10.0) H 11/14/22 RPR Nonreactive (Nonreactive) 11/14/22 HIV 1&2 Ab & HIV 1 Ag Non-reactive (Non-Reactiv) 11/14/22 TSH 3.01 uIU/mL (0.27-4.20) 09/19/22 C.trachomatis RNA (TMA) Not detected (NOT DETECTED) 02/18/23 N.gonorrhoeae RNA (TMA) Not detected (NOT DETECTED) 02/18/23 Chlamydia/GC Comment See note 02/18/23 Cystic Fibrosis Screen Negative 11/14/22 Gest Glucose Tolerance mg/dL 04/23/23 Hemoglobin A1c 5.1 % (4.0-6.0) 09/19/22 Ser , Semi-Qnt 06725.00 mIU/mL 12/28/22 HCG, Qual Positive (Negative) H 10/18/22 Urine Opiates Screen Negative ng/mL (Negative) 11/14/22 Ur Barbiturates Screen Negative ng/mL (Negative) 11/14/22 Ur Phencyclidine Scrn Negative ng/mL (Negative) 11/14/22 Ur Amphetamines Screen Negative ng/mL (Negative) 11/14/22 U Benzodiazepines Scrn Negative ng/mL (Negative) 11/14/22 Urine Cocaine Screen Negative ng/mL (Negative) 11/14/22 U Marijuana (THC) Screen Negative ng/mL (Negative) 11/14/22 Micro Urine Specimen 04/08/23 Pap Smear Interpret See note 09/19/22 Free Testosterone 4.9 pg/mL (0.2-5.0) 09/19/22 Prolactin 14.92 ng/mL (4.8-23.3) 09/19/22 A&P Assessment and plan (1) Encounter for induction of labor: 39 w 4 d Patient requests IOL Plan start Pitocin per protocol (2) GBS (group B streptococcus) UTI complicating : h/o Group B strep UTI plan Abx during labor Attestations Medical Necessity Statement*: patient at 39 w 4 d, admitted for induction of labor Coding Level of Care Code Acute Code for Chg Fwd Diagnoses Encounter for induction of labor Z34.90 GBS (group B streptococcus) UTI complicating O23.40; B95.1 Time Spent (min) 30
--- NOTE | 2023-06-05 02:31 | PM.OP ---
Operative Report Date of procedure: June 05, 2023 Pre-op diagnosis: 39 w 4 d induction of labor cervix at 3 cm heart tracing with repetitive late decelerations Post-op diagnosis: same Post-op diagnosis: intolerance to labor, repetitive late decelerations Post-op findings: clear amniotic fluid no nuchal or body cord normal uterus, tubes, and ovaries vigorous male Procedure done: primary low-transverse Implants: none Specimens removed/disposition: placenta and cord, discarded Surgeon: Demetrio Christianson MD Anesthesia: Epidural Estimated blood loss (mL): 500 Complications: none Condition: stable Disposition: floor Brief History: 23 y.o. at 39 w 4 d admitted for induction of labor Cx at 3 cm heart tracing with repetitive late decelerations Procedure: The patient was taken to the operating room and placed supine in the left lateral tilt position. Epidural anesthesia and a hamilton catheter were already in place. Time-out verification was carried Out. The abdomen was prepped and draped in the usual sterile fashion. A Pfannenstiel incision was made and carried down through skin and subcutaneous tissue and fascia. The fascial incision was extended laterally with Conte scissors. The fascia was from the underlying rectus muscles. The rectus muscles were split in the midline. The peritoneum was entered bluntly avoiding underlying organs. A bladder flap was created. An Abdelrahman-O retractor was placed. A low-transverse uterine incision was made and extended laterally and bluntly avoiding the uterine vessels. Clear amniotic fluid was encountered. The baby was delivered in cephalic presentation atraumatically. The baby was suctioned, the cord was clamped and cut and the baby was handed to pediatric staff. A segment of cord was obtained for cord gas, cord blood was obtained. The placenta was manually removed intact. The uterine cavity was bluntly curetted with wet laps. The uterine incision was then closed with a continuous interlocking stitch of O-chromic. Adequate hemostasis was seen. Inspection of the uterine incision again showed good hemostasis. The fascia was then closed with a continuous stitch of O-Vicryl. The subcutaneous tissue was irrigated and inspected for hemostasis. The skin was then closed with Insorb van. Postoperative condition: stable EBL: 500 cc Complications: none Sponge and instruments counts correct x two
[2023-06-05] MEDS: ketorolac 30 mg/mL INJ IVP ×4 (02:54→21:21)
--- NOTE | 2023-06-05 03:52 | PC.NURSE ---
Epidural removed by Arash Keen CRNA in OR after surgery end
[2023-06-05] MEDS: HYDROcodone-acetaminophen 5-325 mg Tablet PO (05:44)
--- NOTE | 2023-06-05 06:25 | P.ANESPOST_ITS ---
Inpatient post-anesthesia follow up: Airway intact: Yes Vital signs: Temperature 97.5 F Pulse Rate 82 Respiratory Rate 15 Blood Pressure 120/67 Pulse Oximetry 98 Oxygen Delivery Me thod Room Air Oxygen Flow Rate Fraction of Inspir ed Oxygen Nausea and vomiting: No Pain level: 1 Mental status: Baseline Epidural Start/End: Epidural Start Date: 06/04/23 Epidural Start Time: 21: 58 Epidural End Date: 06/05/23 Epidural End Time: 01:05
[2023-06-05] MEDS: ferrous sulfate EC 325 mg Tablet PO ×2 (10:30→21:21)
[2023-06-05] MEDS: prenatal vitamin Capsule 1 CAP PO (10:30)
[2023-06-05] MEDS: docusate sodium 100 mg Capsule PO ×2 (10:30→21:21)
--- NOTE | 2023-06-05 19:12 | PC.NURSE ---
this nurse removed catheter @ 1630, intact, pt tolerated well
[2023-06-05 20:07] LABS: Hematocrit 35.7 % (36-47); Mean Corpuscular HGB Conc 33.9 g/dL (30-55); Mean Corpuscular Hemoglobin 28.9 pg (27-33); Mean Corpuscular Volume 85.2 fl (85-98); Mean Platelet Volume 11.4 fL (7.4-10.4); Platelet Count 270 10^3/cmm (157-399); Red Blood Count 4.19 10^6/uL (3.85-5.65); Red Cell Distribution Width 12.8 % (12.1-15.1); White Blood Count 9.46 10^3/uL (3.29-11.43)
[2023-06-06] MEDS: HYDROcodone-acetaminophen 5-325 mg Tablet PO ×2 (00:07→09:03)
[2023-06-06 01:00] VITALS: RESP 17
[2023-06-06 04:08] VITALS: BP 133/74; PULSE 99
[2023-06-06] MEDS: docusate sodium 100 mg Capsule PO (09:03)
[2023-06-06] MEDS: prenatal vitamin Capsule 1 CAP PO (09:03)
[2023-06-06] MEDS: ferrous sulfate EC 325 mg Tablet PO (09:03)
[2023-06-06 09:05] VITALS: BP 114/79; PULSE 116; RESP 16; TEMP 36.7; O2SAT 99
[2023-06-06 09:09] VITALS: BP 114/79; PULSE 116; TEMP 36.7; O2SAT 99
[2023-06-06 13:30] VITALS: BP 124/66; PULSE 114; RESP 16; TEMP 36.8
--- NOTE | 2023-06-06 14:10 | P.PN_ITS ---
SYSTEM DESIGNER Subjective 2 Subjective: Interval history: no c/o eating, voiding, ambulating well mild incisional pain bleeding wants to go home without any difficulties Labor: Station: -3 Amniotic Membrane Status: Ruptured Monitor Mode: Internal (IUPC) Contraction Pattern: Regular Vitals/I&O/Wt Last Vital Signs Temp 98.2 F 06/06/23 13:30 Pulse 114 H 06/06/23 13:30 Resp 16 06/06/23 13:30 BP 124/66 06/06/23 13:30 Pulse Ox 99 06/06/23 09:09 O2 Del Method Room Air 06/06/23 09:09 Physical Exam 2 Narrative: comfortable afebrile, VS normal Abd: soft, nontender wound clean and dry Ext: normal Urinary Catheter Management: Gaona Latex: Cath Placed During This Visit: yes, but has since been removed by the nurse Reason for Continuing Indwelling Catheter: Perioperative Use in Selected Surgeries Urinary Catheter Date of Insertion: 06/04/23 Urinary Catheter Time of Insertion: 23:10 Date Urinary Catheter Removed: 06/05/23 Time Urinary Catheter Discontinued: 16:50 Data 06/05/23 19:55 A&P Assessment and plan (1) S/P : POD #1 primary low-transverse doing well discharge home today instructions and precautions given call/return if fever, chills, nausea, vomiting, headaches, abdominal pain, bleeding, inability to void, swelling, leg pain; feelings of depression or mood changes; wound redness, swelling, or discharge f/u in 1 week or PRN Attestations 2 Medical Necessity Statement*: patient s/p , plan discharge to home today Coding Level of Care Code Acute Code for Chg Fwd Diagnoses S/P Z98.891 Time Spent (min) 20
--- NOTE | 2023-06-06 15:05 | PM.OBGYDC ---
Discharge Providers VENTILATION MECHANIC Date of Admission: 06/04/23 23:58 Date of Discharge: 06/06/23 Attending Provider at Admission: Demetrio Christianson MD Attending Provider at Discharge: Demetrio Christianson MD Consults: none Primary VENTILATION MECHANIC: Demetrio Christianson MD Primary Care Provider: JAIDA Rodriguez Diagnoses at Discharge Discharge Diagnosis (1) S/P : Details from hospital stay: 23 y.o. at 39 w 4 d admitted for induction of labor Cx at 3 cm heart tracing began to have repetitive late decelerations patient underwent primary low-transverse without any complications and was discharged to home on day #1 Status: Acute Reason for Visit Reason for Visit: induction Brief History: 23 y.o. G1 admitted for induction of labor at 39 w 4 d Hospital Course Hospital Course 23 y.o. at 39 w 4 d admitted for induction of labor Cx at 3 cm heart tracing began to have repetitive late decelerations patient underwent primary low-transverse without any complications and was discharged to home on day #1 Information Peripartum Data: Delivery Method: complications: none Physical Exam Narrative: comfortable afebrile, VS normal Abd: soft, nontender wound clean and dry Ext: normal Urinary Catheter Management: Gaona Latex: Cath Placed During This Visit: yes, but has since been removed by the nurse Reason for Continuing Indwelling Catheter: Perioperative Use in Selected Surgeries Urinary Catheter Date of Insertion: 06/04/23 Urinary Catheter Time of Insertion: 23:10 Date Urinary Catheter Removed: 06/05/23 Time Urinary Catheter Discontinued: 16:50 History History History 1 Term 1 0 Miscarriages/Ectopic 0 Living Children 1 Discharge Data Studies Completed and Pending Laboratory Results WBC 9.46 10^3/uL (3.29-11.43) 06/05/23 19:55 RBC 4.19 10^6/uL (3.85-5.65) 06/05/23 19:55 Hgb 12.10 g/dL (11.27-16.99) 06/05/23 19:55 Hct 35.7 % (36-47) L 06/05/23 19:55 MCV 85.2 fl (85-98) 06/05/23 19:55 MCH 28.9 pg (27-33) 06/05/23 19:55 MCHC 33.9 g/dL (30-55) 06/05/23 19:55 RDW 12.8 % (12.1-15.1) 06/05/23 19:55 Plt Count 270 10^3/cmm (157-399) 06/05/23 19:55 MPV 11.4 fL (7.4-10.4) H 06/05/23 19:55 Neut % (Auto) 75.2 % 06/04/23 14:15 Lymph % (Auto) 13.4 % 06/04/23 14:15 [place] % (Auto) 9.5 % 06/04/23 14:15 Eos % (Auto) 1.0 % 06/04/23 14:15 Baso % (Auto) 0.4 % 06/04/23 14:15 Neut # (Auto) 8.29 10^3/uL (1.8-7.7) H 06/04/23 14:15 Lymph # (Auto) 1.5 10^3/uL (0.8-4.8) 06/04/23 14:15 [place] # (Auto) 1.1 10^3/uL (0.2-0.9) H 06/04/23 14:15 Eos # (Auto) 0.1 10^3/uL (0.0-0.8) 06/04/23 14:15 Baso # (Auto) 0.0 10^3/uL (0.0-0.1) 06/04/23 14:15 Nucleated RBC % (auto) 0 % 06/04/23 14:15 Nucleated RBCs # 0.0 /100WBC 06/04/23 14:15 Blood Type A Positive 06/04/23 14:15 Rho(D) Type Rh positive 06/04/23 14:15 Antibody Screen Negative 06/04/23 14:15 Procedures Performed primary low-transverse Vitals Last Vital Signs Temp 98.2 F 06/06/23 13:30 Pulse 114 H 06/06/23 13:30 Resp 16 06/06/23 13:30 BP 124/66 06/06/23 13:30 Pulse Ox 99 06/06/23 09:09 O2 Del Method Room Air 06/06/23 09:09 Results Labs OB ([facility]): Obstetrics US 05/14/23 Blood Type A Positive 06/04/23 Antibody Screen Negative 06/04/23 Hct 35.7 % (36-47) L 06/05/23 Hgb 12.10 g/dL (11.27-16.99) 06/05/23 Rho(D) Type Rh positive 06/04/23 Plt Count 270 10^3/cmm (157-399) 06/05/23 Hep Bs Antigen Non-reactive (Nonreactive) 11/14/22 Hepatitis C Antibody Non-reactive (Nonreactive) 11/14/22 Rubella IgG Antibody 19.3 IU/mL (0.0-10.0) H 11/14/22 RPR Nonreactive (Nonreactive) 11/14/22 HIV 1&2 Ab & HIV 1 Ag Non-reactive (Non-Reactiv) 11/14/22 TSH 3.01 uIU/mL (0.27-4.20) 09/19/22 C.trachomatis RNA (TMA) Not detected (NOT DETECTED) 02/18/23 N.gonorrhoeae RNA (TMA) Not detected (NOT DETECTED) 02/18/23 Chlamydia/GC Comment See note 02/18/23 Cystic Fibrosis Screen Negative 11/14/22 Gest Glucose Tolerance mg/dL 04/23/23 Hemoglobin A1c 5.1 % (4.0-6.0) 09/19/22 Ser , Semi-Qnt 05166.00 mIU/mL 12/28/22 HCG, Qual Positive (Negative) H 10/18/22 Urine Opiates Screen Negative ng/mL (Negative) 11/14/22 Ur Barbiturates Screen Negative ng/mL (Negative) 11/14/22 Ur Phencyclidine Scrn Negative ng/mL (Negative) 11/14/22 Ur Amphetamines Screen Negative ng/mL (Negative) 11/14/22 U Benzodiazepines Scrn Negative ng/mL (Negative) 11/14/22 Urine Cocaine Screen Negative ng/mL (Negative) 11/14/22 U Marijuana (THC) Screen Negative ng/mL (Negative) 11/14/22 Micro Urine Specimen 04/08/23 Pap Smear Interpret See note 09/19/22 Free Testosterone 4.9 pg/mL (0.2-5.0) 09/19/22 Prolactin 14.92 ng/mL (4.8-23.3) 09/19/22 Discharge Plan Discharge Patient Disposition: Home Condition: Stable Prescriptions: New Percocet 10-325 mg tablet 1 tab PO BID PRN (Reason: pain) Qty: 20 0RF Continued Gummies 400 mcg-35 mg- 25 mg-5 mg tablet,chewable 1 tab PO DAILY No Action norethindrone-e.estradiol-iron [ FE 1.5/30 (28)] 1.5 mg-30 mcg (21)/75 mg (7) tablet 1 tab PO DAILY Qty: 84 4RF Discharge Orders: Discharge Order (Routine); Ordered 06/06/23 Ordered By: Demetrio Christianson Referrals: Demetrio Christianson MD [Physician] - 06/24/23 8:45 am (6 week post 4-22 sceduled for 1:30 PM) Discharge Diet: Usual diet Discharge Activity: Increase activity as tolerated Patient Instructions: Oxycodone/Acetaminophen (By mouth) (Percocet, Roxicet), Preeclampsia and Eclampsia After Delivery (GEN), OB [facility], OB Food/Drug Interaction Guide, OB Care at Home, Opioid Safety, OB Home Care, Abnormal Bleeding, Depression Discharge Attestations VENTILATION MECHANIC Time Spent in Discharge Care*: less than 30 min Coding Level of Care Code Acute Code for Chg Fwd Diagnoses S/P Z98.891 Time Spent (min) 20
== END 2023-06-06 13:55 | disposition home or self-care (01) | DRG 788 ==
LOC: OPOB 06-05 00:01 → OBGYN 06-05 00:02
PROVIDERS: Admitting Provider Obstetrics & Gynecology; PCP Nurse Practitioner Family; Visit Provider Obstetrics & Gynecology
PROC: 10D00Z1 Extraction of Products of Conception, Low, Open Approach (ICD-10-PCS; CPT 59514; principal; 2023-06-05)
DX: O99.824 Streptococcus B carrier state complicating childbirth (principal); Z3A.39 39 weeks gestation of pregnancy; Z37.0 Single live birth; O99.284 Endocrine, nutritional and metabolic diseases complicating childbirth; E28.2 Polycystic ovarian syndrome; O99.214 Obesity complicating childbirth; E66.9 Obesity, unspecified; O76 Abnormality in fetal heart rate and rhythm complicating labor and delivery
CPT/HCPCS: 36415; 51702; 59025; 59409; 85025; 85027; 86850; 86900; 96374; 96376; 99211; J0290; J0690; J1885; J2274; J2405; J2590; J2765; J2795; J3010; J3490; J7030; J7120; J7121

== ENCOUNTER → 2023-07-29 14:07 | Outpatient (BNVA) | payer BC, MEDICAID, SELFPAY | PROVIDERS: PCP Nurse Practitioner Family; Visit Provider Obstetrics & Gynecology | DX: Z34.00 Encounter for supervision of normal first pregnancy, unspecified trimester (principal); Z3A.00 Weeks of gestation of pregnancy not specified | CPT/HCPCS: 84702 ==

== ENCOUNTER → 2024-02-17 13:34 | Outpatient (BNVA) | payer BC, SELFPAY | PROVIDERS: PCP Nurse Practitioner Family; Visit Provider Nurse Practitioner Women's Health | DX: E28.2 Polycystic ovarian syndrome (principal); Z32.01 Encounter for pregnancy test, result positive; N91.2 Amenorrhea, unspecified | CPT/HCPCS: 81025; 84702; 86850; 86900 ==

== ENCOUNTER → 2024-03-02 08:34 | Outpatient (BNVA) | payer BC, SELFPAY | PROVIDERS: PCP Nurse Practitioner Family; Visit Provider Nurse Practitioner Women's Health | DX: Z34.91 Encounter for supervision of normal pregnancy, unspecified, first trimester (principal); Z3A.01 Less than 8 weeks gestation of pregnancy | CPT/HCPCS: 76801 ==

== ENCOUNTER → 2024-04-09 08:33 | Outpatient (BNVA) | payer BC, SELFPAY | PROVIDERS: PCP Nurse Practitioner Family; Visit Provider Nurse Practitioner Women's Health | DX: Z32.01 Encounter for pregnancy test, result positive (principal) | CPT/HCPCS: 80307; 84315; 84443; 85025; 86592; 86762; 86803; 87086; 87340; 87491; 87591; 87661; 87806 ==

== ENCOUNTER → 2024-04-20 10:11 | Outpatient (BNVA) | payer BC, SELFPAY | PROVIDERS: PCP Nurse Practitioner Family; Visit Provider Obstetrics & Gynecology | DX: Z34.80 Encounter for supervision of other normal pregnancy, unspecified trimester (principal) | CPT/HCPCS: 84315 ==

== ENCOUNTER → 2024-05-04 08:19 | Outpatient (BNVA) | payer BC, MEDICAID, SELFPAY | PROVIDERS: PCP Nurse Practitioner Family; Visit Provider Nurse Practitioner Women's Health | DX: O23.41 Unspecified infection of urinary tract in pregnancy, first trimester (principal); Z3A.00 Weeks of gestation of pregnancy not specified | CPT/HCPCS: 82105; 82950; 84315; 87086 ==

== ENCOUNTER → 2024-06-01 09:35 | Outpatient (BNVA) | payer BC, MEDICAID, SELFPAY | PROVIDERS: PCP Nurse Practitioner Family; Visit Provider Obstetrics & Gynecology | DX: O26.892 Other specified pregnancy related conditions, second trimester (principal); Z3A.20 20 weeks gestation of pregnancy | CPT/HCPCS: 76805 ==

== ENCOUNTER → 2024-06-08 10:24 | Outpatient (BNVA) | payer BC, SELFPAY | PROVIDERS: PCP Nurse Practitioner Family; Visit Provider Obstetrics & Gynecology | DX: Z34.80 Encounter for supervision of other normal pregnancy, unspecified trimester (principal) | CPT/HCPCS: 84315 ==

== ENCOUNTER → 2024-06-25 13:49 | Outpatient (BNVA) | payer BC, MEDICAID, SELFPAY | PROVIDERS: PCP Nurse Practitioner Family; Visit Provider Nurse Practitioner Women's Health | DX: Z34.80 Encounter for supervision of other normal pregnancy, unspecified trimester (principal) | CPT/HCPCS: 84315 ==

== ENCOUNTER → 2024-08-24 09:17 | Outpatient (BNVA) | payer BC, SELFPAY | PROVIDERS: PCP Nurse Practitioner Family; Visit Provider Obstetrics & Gynecology | DX: Z34.80 Encounter for supervision of other normal pregnancy, unspecified trimester (principal) | CPT/HCPCS: 82950; 84315; 85025 ==

== ENCOUNTER → 2024-09-17 08:21 | Outpatient (BNVA) | payer BC, SELFPAY | PROVIDERS: PCP Nurse Practitioner Family; Visit Provider Nurse Practitioner Women's Health | DX: O23.41 Unspecified infection of urinary tract in pregnancy, first trimester (principal); Z3A.00 Weeks of gestation of pregnancy not specified | CPT/HCPCS: 76816; 84315; 87077; 87086; 87184 ==

== ENCOUNTER → 2024-09-28 15:42 | Outpatient (BNVA) | payer BC, SELFPAY | PROVIDERS: PCP Nurse Practitioner Family; Visit Provider Obstetrics & Gynecology | DX: Z34.80 Encounter for supervision of other normal pregnancy, unspecified trimester (principal) | CPT/HCPCS: 84315; 87081 ==

== ENCOUNTER → 2024-10-05 09:53 | Outpatient (BNVA) | payer BC, SELFPAY | PROVIDERS: PCP Nurse Practitioner Family; Visit Provider Obstetrics & Gynecology | DX: Z34.90 Encounter for supervision of normal pregnancy, unspecified, unspecified trimester (principal) | CPT/HCPCS: 84315 ==

== ENCOUNTER 2024-10-13 05:06 | Inpatient (IN) | payer BC, MEDICAID, SELFPAY ==
--- NOTE | 2024-10-12 10:56 | ANES.PREANE2 ---
Pre-Anesthetic Assessment Height/Weight: Height 1.63 m Operation Date: 10/13/24 07:20 Proposed Procedures p Section Repeat 28781(Not Applicable) - Demetrio Christianson MD Familial anesthetic complications: None Was Beta Baldo taken within 24 hours: N/A Was Clonidine taken within 24 hours: N/A Last intake: > 8h rs Social No alcohol and No tobacco Exam alert, oriented x 3, clear to auscultation bilaterally and regular rate & rhythm Airway Mallampati: Class II Dentition: full Metabolic PCOS Anesthetic Plan ASA status: 3 Anesthesia: Regional (specify below) Risk of > 500 ml blood loss (7ml/kg in children): Yes, adequate IV access and fluids planned Medications/Allergies Home Medications ?Medication ?Instructions ?Recorded ?Confirmed ?Last Taken ?Type vits no.126-ferrous fum tab PO 04/09/24 10/12/24 Unknown History 28 mg iron-folic acid 800 mcg tablet (Classic ) Allergies Allergy/AdvReac Type Severity Reaction Status Date / Time No Known Allergies Allergy Verified 10/12/24 08:08 [facility] Anesthesia Medical History UTI (urinary tract infection) UTI in Encounter for induction of labor GBS (group B streptococcus) UTI complicating Elevated C-reactive protein Oligoarthritis No pertinent past medical history neghx: htn,dm,thyroid,dvt/pe PCP: Kailyn Mcintyre [facility] Heart murmur Surgical History S/P Hx of appendectomy Family History Grandmother Breast cancer maternal great grandmother Mother Hypertension Heart disease Denies family history of Colon cancer Ovarian cancer Diabetes Hyperlipidemia Uterine cancer Thyroid disease Stroke Social History Smoking and tobacco/nicotine status: never used tobacco/nicotine
[2024-10-13] VITALS (44 sets, daily range): BP systolic 98–148; BP diastolic 45–93; PULSE 67–101; RESP 16; TEMP 35.1–36.6; O2SAT 98–100; BMI 38.4
--- OUTSIDE RECORDS SUMMARY | 2024-10-13 05:09 | XMS_ITS | Clinical Summary ---
Author Organization [employer] Address [address] [place]: Epic Prelude ADT [place] [address] Care Team Providers Care Director Of Business Continuity Name Role Phone Unavailable Primary Care Provider Unavailabl e Social History Tobacco Use Types Packs/Day Years Used Date Smoking Tobacco: Never Smokeless Tobacco: Never Alcohol Use Standard Drinks/Week Comments Never 0 (1 standard drink = 0.6 oz pur e alcohol) Comments Unknown Sex and Gender Information Value Date Recorded Sex Assigned at Not on file Legal Sex Female 8:13 PM COPYRIGHT EXPERT Gender Identity Not on file Sexual Orientation Not on file Last Filed Vital Signs Vital Sign Reading Time Taken Comments Blood Pressure 141/75 12/19/2018 9:40 PM CDT Pulse - - Temperature 36.8 C (98.3 F) 12/19/2018 9:40 PM CDT Respiratory Rate 18 12/19/2018 9:40 PM CDT Oxygen Saturation - - Inhaled Oxygen Concentration - - Weight - - Height - - Body Mass Index - - Plan of Treatment Health Maintenance Due Date Last Done Comments HPV VACCINES (1 - 3-dose series) 2015 DTAP/TDAP/TD VACCINES (1 - Tdap) 2019 HEPATITIS B VACCINES (1 of 3 - 19+ 3-dose series) 04/09 CERVICAL CANCER SCREENING 2021 HPV/Cotest (21-29) 2021 PAP SMEAR 2021 INFLUENZA VACCINE (#1) 2024
--- OUTSIDE RECORDS SUMMARY | 2024-10-13 05:09 | XMS_ITS | Clinical Summary ---
Author Organization [facility] Address [address] [place] [address] Phone Care Team Providers Care Uniform Cap Operator Name Role Phone Unavailable Primary Care Provider Unavailabl e Medications No known medications Social History Tobacco Use Types Packs/Day Years Used Date Smoking Tobacco: Never Smokeless Tobacco: Never Alcohol Use Standard Drinks/Week Comments Never 0 (1 standard drink = 0.6 oz pur e alcohol) Comments Unknown Sex and Gender Information Value Date Recorded Sex Assigned at Not on file Legal Sex Female 9:35 PM CDT Gender Identity Not on file Sexual Orientation Not on file Last Filed Vital Signs Vital Sign Reading Time Taken Comments Blood Pressure 141/75 12/19/2018 9:40 PM CDT Pulse - - Temperature 36.8 C (98.3 F) 12/19/2018 9:40 PM CDT Respiratory Rate 18 12/19/2018 9:40 PM CDT Oxygen Saturation 97% 12/19/2018 9:40 PM CDT Inhaled Oxygen Concentration - - Weight - [...]
--- NOTE | 2024-10-13 05:40 | PM.OBGYHP ---
Providers/Chief Complaint Admitting Physician: Demetrio Christianson MD Primary MIXER WHIPPED TOPPING: Demetrio Christianson MD Primary Care Provider: JAIDA Rodriguez [facility] MIXER WHIPPED TOPPING History of Present Illness Denita Weiner is a 24 year old female A1 EDC October 17, 2024 At 39 w 4 d No complications h/o low-transverse x one Now for repeat No c/o + movements Medications/Allergies Home Medications ?Medication ?Instructions ?Recorded ?Confirmed ?Last Taken ?Type vits no.126-ferrous fum tab PO 04/09/24 10/12/24 Unknown History 28 mg iron-folic acid 800 mcg tablet (Classic ) Allergies Allergy/AdvReac Type Severity Reaction Status Date / Time No Known Allergies Allergy Verified 10/12/24 08:08 [facility] MIXER WHIPPED TOPPING PFSH: Medical History UTI (urinary tract infection) UTI in Encounter for induction of labor GBS (group B streptococcus) UTI complicating Elevated C-reactive protein Oligoarthritis No pertinent past medical history neghx: htn,dm,thyroid,dvt/pe PCP: Kailyn Mcintyre - [facility] Heart murmur Surgical History S/P Hx of appendectomy Family History Grandmother Breast cancer maternal great grandmother Mother Hypertension Heart disease Denies family history of Colon cancer Ovarian cancer Diabetes Hyperlipidemia Uterine cancer Thyroid disease Stroke Social History Smoking and tobacco/nicotine status: never used tobacco/nicotine History History History 3 Term 1 0 Miscarriages/Ectopic 1 Living Children 1 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 VS normal General comfortable, awake, alert Lungs: clear Cor: RRR Abd: nontender FH 38 cm Ext normal External monitor: heart tracing good variability, + accelerations Results Labs OB ([facility]): Obstetrics US 09/17/24 Blood Type A Positive 02/17/24 Antibody Screen Negative 02/17/24 Hct, (36-47) 36.3 % 08/24/24 Hgb, (11.27-16.99) 11.90 g/dL 08/24/24 Rho(D) Type Rh positive 02/17/24 Plt Count, (157-399) 313 10^3/cmm 08/24/24 Hep Bs Antigen, (Nonreactive) Non-reactive 04/09/24 Hepatitis C Antibody, (Nonreactive) Non-reactive 04/09/24 Rubella IgG Antibody, (0.0-10.0) 24.2 IU/mL H 04/09/24 RPR, (Nonreactive) Nonreactive 04/09/24 HIV 1&2 Ab & HIV 1 Ag, (Non-Reactiv) Non-reactive 04/09/24 TSH, (0.27-4.20) 3.27 uIU/mL 04/09/24 C.trachomatis RNA (TMA), (NOT DETECTED) Not detected 02/18/23 N.gonorrhoeae RNA (TMA), (NOT DETECTED) Not detected 02/18/23 Chlamydia/GC Comment See note 02/18/23 Glucose 1 Hr 50 gm, (85-140) 129 mg/dL 08/24/24 Gest Glucose Tolerance mg/dL 04/23/23 Ser , Semi-Qnt 8551.00 mIU/mL 02/17/24 HCG, Qual, (Negative) Positive H 02/17/24 Urine Opiates Screen, (Negative) Negative ng/mL 04/09/24 Ur Barbiturates Screen, (Negative) Negative ng/mL 04/09/24 Ur Phencyclidine Scrn, (Negative) Negative ng/mL 04/09/24 Ur Amphetamines Screen, (Negative) Negative ng/mL 04/09/24 U Benzodiazepines Scrn, (Negative) Negative ng/mL 04/09/24 Urine Cocaine Screen, (Negative) Negative ng/mL 04/09/24 U Marijuana (THC) Screen, (Negative) Negative ng/mL 04/09/24 Micro Urine Specimen 09/17/24 A&P Assessment and plan (1) : 38 w 4 d h/o x one patient wants repeat procedure and risks explained Risks include, but not limited to, infection, bleeding, injury to internal organs, anesthesia, blood transfusions Patient understands and wants to proceed PDMP PDMP Reviewed: Not Reviewed Attestations Medical Necessity Statement*: patient at 38 w 4 d, for repeat Coding Level of Care Code Acute Code for Chg Fwd Diagnoses 12 weeks gestation of Z3A.12 Weeks of gestation: 12 weeks
[2024-10-13 05:42] LABS: Hematocrit 36.9 % (36-47); Hemoglobin 12.20 g/dL (11.27-16.99); Mean Corpuscular HGB Conc 33.1 g/dL (30-55); Mean Corpuscular Hemoglobin 26.1 pg (27-33); Mean Corpuscular Volume 79.0 fl (85-98); Nucleated Red Blood Cells % 0 %; Platelet Count 366 10^3/cmm (157-399); Red Blood Count 4.67 10^6/uL (3.85-5.65); White Blood Count 8.68 10^3/uL (3.29-11.43)
[2024-10-13] MEDS: metoclopramide 5 mg/mL SDV 2 mL 10 MG IVP (06:44)
[2024-10-13] MEDS: ceFAZolin 2,000 mg SDV 2000 MG IVP (06:47)
--- NOTE | 2024-10-13 06:56 | ANES.PREANE2 ---
Pre-Anesthetic Assessment Height/Weight: Height 1.63 m Weight 101.605 kg Temp Pulse BP O2 Del Method 97.9 F 86 126/77 Room Air 10/13/24 05:37 10/13/24 06:46 10/13/24 06:46 10/13/24 05:10 Preop Diagnosis: Term Labor Operation Date: 10/13/24 07:20 Proposed Procedures p Section Repeat 93467(Not Applicable) - Demetrio Christianson MD Familial anesthetic complications: none Was Beta Baldo taken within 24 hours: N/A Was Clonidine taken within 24 hours: N/A Last intake: Intake Last Liquid Date 10/13/24 Last Liquid Time 04:00 Last Solid Date 10/12/24 Last Solid Time 21:00 Social No alcohol and No tobacco Exam alert, oriented x 3, clear to auscultation bilaterally and regular rate & rhythm Airway Submandibular: within normal limits Cervical ROM: within normal limits Mallampati: Class II Dentition: full History/ROS No significant history except as noted and No significant complaints Pulmonary None reported CV/HEM None reported None reported Hepatic None reported GI None reported Metabolic None reported Musc/skel None reported Neuropsych None reported Anesthetic Plan ASA status: 2 Anesthesia: Choice (Spinal) Risk of > 500 ml blood loss (7ml/kg in children): Yes, adequate IV access and fluids planned Medications/Allergies Home Medications ?Medication ?Instructions ?Recorded ?Confirmed ?Last Taken ?Type vits no.126-ferrous fum 1 tab PO 1XD 04/09/24 10/13/24 1 Week Ago History 28 mg iron-folic acid 800 mcg ~10/06/24 tablet (Classic ) Allergies Allergy/AdvReac Type Severity Reaction Status Date / Time No Known Allergies Allergy Verified 10/13/24 05:47 [facility] Anesthesia Medical History UTI (urinary tract infection) UTI in Encounter for induction of labor GBS (group B streptococcus) UTI complicating Elevated C-reactive protein Oligoarthritis No pertinent past medical history neghx: htn,dm,thyroid,dvt/pe PCP: Kailyn Mcintyre [employer]IAN- [facility] Heart murmur Surgical History S/P Hx of appendectomy Family History Grandmother Breast cancer maternal great grandmother Mother Hypertension Heart disease Denies family history of Colon cancer Ovarian cancer Diabetes Hyperlipidemia Uterine cancer Thyroid disease Stroke Social History Smoking and tobacco/nicotine status: never used tobacco/nicotine Female Reproductive History Date of last menstrual period: 12/29/23 : 2 Data Anesthesia 10/13/24 05:35 Short CBC 10/13/24 Range/Units 05:35 WBC 8.68 (3.29-11.43) 10^3/uL Hgb 12.20 (11.27-16.99) g/dL Hct 36.9 (36-47) % MCV 79.0 L (85-98) fl Plt Count 366 (157-399) 10^3/cmm Neut % (Auto) 72.1 % Neut # (Auto) 6.26 (1.8-7.7) 10^3/uL Blood Bank 10/13/24 05:35 Blood Type A Positive Rho(D) Type Rh positive Antibody Screen Negative
--- NOTE | 2024-10-13 07:07 | W.PM.OPSUD ---
Surgery/Procedure H&P Update DATE OF PROCEDURE: October 13, 2024 DATE H&P PERFORMED: 10/13/24 H&P UPDATE INFORMATION: I have reviewed H&P completed within last 30 days, I have examined patient prior to procedure and No changes to prior documentation PREOP DIAGNOSIS: Term Labor PLANNED PROCEDURE: Operation Date: 10/13/24 07:20 Proposed Procedures p Section Repeat 66960(Not Applicable) - Demetrio Christianson MD
--- NOTE | 2024-10-13 08:25 | PM.OP2 ---
Brief Operative Note Date of procedure: 10/13/24 Pre-op diagnosis: 38 w 4 d; h/o x one Post-op diagnosis: same Procedure Done: repeat low-transverse Surgeon: Demetrio Christianson Complications: none Post-op Plan: postoperative and care Condition: stable Disposition: floor
--- NOTE | 2024-10-13 08:50 | P.OP_ITS ---
Operative Report Date of procedure: October 13, 2024 Pre-op diagnosis: 39 ? weeks gestation Previous x one For repeat Post-op diagnosis: same Post-op findings: Vigorous Normal placenta and cord Normal uterus, tubes, and ovaries Procedure done: Repeat low-transverse Implants: none Specimens removed/disposition: placenta and cord, disposed of Surgeon: Demetrio Christianson MD Anesthesia: Spinal Estimated blood loss (mL): 400 Complications: none Findings: Vigorous Normal placenta and cord Normal uterus, tubes, and ovaries Condition: stable Disposition: floor Brief History: Patient with previous , scheduled for repeat . Procedure: Informed consent signed. Patient was taken to the operating room, placed supine in the left lateral tilt position. Spinal anesthesia and a Gaona catheter were already placed. The abdomen was prepped and draped in the usual sterile fashion. A Pfannenstiel incision was made over an old scar and carried down through skin and subcutaneous tissue and fascia. The fascial incision was extended laterally with Conte scissors. The fascia was from the underlying rectus muscles. The rectus muscles were split in the midline. The peritoneum was entered bluntly avoiding underlying organs. A bladder flap was created. A low transverse uterine incision was made and extended laterally bluntly avoiding the uterine vessels. Clear amniotic fluid was seen. The baby was delivered in cephalic presentation atraumatically. The baby was suctioned. The cord was clamped and cut and the baby was handed to an awaiting emergency room physician assistant. Cord blood was obtained. The placenta was manually removed intact. The uterine cavity was bluntly curetted with wet laps. The uterine incision was then closed with a continuous interlocking stitch of O chromic. Adequate hemostasis was seen. No bleeding was seen. The uterine incision was again inspected and found to have good hemostasis. The fascia was then closed with a continuous stitch of O-Vicryl. Additional interrupted stitches of O-Vicryl were used for fascial closure. The subcu taneous tissue was irrigated and inspected for hemostasis. The skin was then reapproximated using Insorb vna. Postoperative condition stable Disposition to recovery room Estimated blood loss 400 cc, no replacement Sponge, needle, and instrument counts were correct x two There were no complications
--- NOTE | 2024-10-13 11:46 | ANE.PACU2 ---
Inpatient post-anesthesia follow up: Airway intact: Yes Vital signs: Temperature 96.3 F Pulse Rate 80 Respiratory Rate Blood Pressure 127/70 Pulse Oximetry 100 Oxygen Delivery Me thod Room Air Oxygen Flow Rate Fraction of Inspir ed Oxygen Hydration adequate: Yes Nausea and vomiting: No Pain level: 1 Mental status: Baseline
[2024-10-13] MEDS: HYDROcodone-acetaminophen 5-325 mg Tablet PO (14:50)
[2024-10-13 22:35] LABS: Hematocrit 36.0 % (36-47); Hemoglobin 11.80 g/dL (11.27-16.99); Mean Corpuscular HGB Conc 32.8 g/dL (30-55); Mean Corpuscular Hemoglobin 26.2 pg (27-33); Mean Corpuscular Volume 80.0 fl (85-98); Platelet Count 304 10^3/cmm (157-399); Red Blood Count 4.50 10^6/uL (3.85-5.65); White Blood Count 8.36 10^3/uL (3.29-11.43)
[2024-10-14 04:50] VITALS: BP 119/76; PULSE 84; RESP 16; TEMP 36.6; O2SAT 99
[2024-10-14] MEDS: PRENATAL VIT NO.130/IRON/FOLIC 1 EACH TABLET PO (09:43)
[2024-10-14 13:54] VITALS: BP 116/77; PULSE 67; RESP 16; TEMP 36.6; O2SAT 98
--- NOTE | 2024-10-14 14:05 | P.PN_ITS ---
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 Subjective 2 Subjective: Interval history: no c/o except for mild incisional pain, relieved with pain meds eating, voiding, ambulating well no pain, bleeding wants to go home without any difficulties Labor: Amniotic Membrane Status: Intact Monitor Mode: External C ontraction Pattern: Irregular Vitals/I&O/Wt Last Vital Signs Temp 98 F 10/14/24 13:54 Pulse 67 10/14/24 13:54 Resp 16 10/14/24 13:54 BP 116/77 10/14/24 13:54 Pulse Ox 98 10/14/24 13:54 O2 Del Method Room Air 10/14/24 04:50 Physical Exam 2 Narrative: General comfortable, awake, alert VS afebrile, normal Lungs: clear Cor: RRR Abd: soft, nontender Wound clean and dry Ext: no edema Postop Hgb 11.8 Urinary Catheter Management: Gaona: Cath Placed During This Visit: yes, but has since been removed by the nurse Reason for Continuing Indwelling Catheter: Decision to DC Catheter Urinary Catheter Date of Insertion: 10/13/24 Urinary Catheter Time of Insertion: 07:10 Date Urinary Catheter Removed: 10/13/24 Time Urinary Catheter Discontinued: 22:45 Data 10/13/24 20:50 A&P Assessment and plan 1. S/P : POD #1 repeat low-transverse doing well discharge home today instructions and precautions given call/return if fever, chills, nausea, vomiting, headaches, abdominal pain, bleeding, inability to void, swelling, leg pain; feelings of depression or mood changes; wound redness, swelling, or discharge; chest pain; shortness of breath f/u in 1 week or PRN PDMP PDMP Reviewed: Last Reviewed 10/14/24 09:47 EDT by Demetrio Christianson MD Attestations 2 Medical Necessity Statement*: patient s/p repeat , plan to discharge to home today Coding Level of Care Code Acute Code for Chg Fwd Diagnoses S/P Z98.891
--- NOTE | 2024-10-14 15:10 | PM.OBGYDC ---
Discharge Providers TILE INSPECTOR Date of Admission: 10/13/24 05:06 Date of Discharge: 10/14/24 Attending Provider at Admission: Demetrio Christianson MD Attending Provider at Discharge: Demetrio Christianson MD Consults: none Primary TILE INSPECTOR: Demetrio Christianson MD Primary Care Provider: JAIDA Rodriguez Diagnoses at Discharge Discharge Diagnosis 1. S/P : Details from hospital stay: 24 y.o. A1 at 39 w 4 d no complications h/o low-transverse x one patient desired repeat for delivery patient was admitted for repeat Repeat low-transverse was done without any complications patient did well postoperatively and was discharged to home on the first postoperative day Reason for Visit Reason for Visit: utd 7-8 Brief History: 24 y.o. A1 at 39 w 4 d no complications h/o low-transverse x one patient desired repeat for delivery patient was admitted for repeat Hospital Course Hospital Course 24 y.o. A1 at 39 w 4 d no complications h/o low-transverse x one patient desired repeat for delivery patient was admitted for repeat Repeat low-transverse was done without any complications patient did well postoperatively and was discharged to home on the first postoperative day Information Peripartum Data: Delivery Method: complications: none Physical Exam Narrative: General comfortable, awake, alert VS afebrile, normal Lungs: clear Cor: RRR Abd: soft, nontender Wound clean and dry Ext: no edema Postop Hgb 11.8 Urinary Catheter Management: Gaona: Cath Placed During This Visit: yes, but has since been removed by the nurse Reason for Continuing Indwelling Catheter: Decision to DC Catheter Urinary Catheter Date of Insertion: 10/13/24 Urinary Catheter Time of Insertion: 07:10 Date Urinary Catheter Removed: 10/13/24 Time Urinary Catheter Discontinued: 22:45 History History History 3 Term 1 0 Miscarriages/Ectopic 1 Living Children 1 Discharge Data Studies Completed and Pending Laboratory Results WBC 8.36 10^3/uL (3.29-11.43) 10/13/24 20:50 RBC 4.50 10^6/uL (3.85-5.65) 10/13/24 20:50 Hgb 11.80 g/dL (11.27-16.99) 10/13/24 20:50 Hct 36.0 % (36-47) 10/13/24 20:50 MCV 80.0 fl (85-98) L 10/13/24 20:50 MCH 26.2 pg (27-33) L 10/13/24 20:50 MCHC 32.8 g/dL (30-55) 10/13/24 20:50 RDW 12.7 % (12.1-15.1) 10/13/24 20:50 Plt Count 304 10^3/cmm (157-399) 10/13/24 20:50 MPV 12.3 fL (7.4-10.4) H 10/13/24 20:50 Neut % (Auto) 72.1 % 10/13/24 05:35 Lymph % (Auto) 19.0 % 10/13/24 05:35 [place] % (Auto) 7.3 % 10/13/24 05:35 Eos % (Auto) 0.8 % 10/13/24 05:35 Baso % (Auto) 0.3 % 10/13/24 05:35 Neut # (Auto) 6.26 10^3/uL (1.8-7.7) 10/13/24 05:35 Lymph # (Auto) 1.7 10^3/uL (0.8-4.8) 10/13/24 05:35 [place] # (Auto) 0.6 10^3/uL (0.2-0.9) 10/13/24 05:35 Eos # (Auto) 0.1 10^3/uL (0.0-0.8) 10/13/24 05:35 Baso # (Auto) 0.0 10^3/uL (0.0-0.1) 10/13/24 05:35 Nucleated RBC % (auto) 0 % 10/13/24 05:35 Nucleated RBCs # 0.0 /100WBC 10/13/24 05:35 Blood Type A Positive 10/13/24 05:35 Rho(D) Type Rh positive 10/13/24 05:35 Antibody Screen Negative 10/13/24 05:35 Procedures Performed repeat low-transverse Vitals Last Vital Signs Temp 98 F 10/14/24 13:54 Pulse 67 10/14/24 13:54 Resp 16 10/14/24 13:54 BP 116/77 10/14/24 13:54 Pulse Ox 98 10/14/24 13:54 O2 Del Method Room Air 10/14/24 04:50 Results Labs OB ([facility]): Obstetrics US 09/17/24 Blood Type A Positive 10/13/24 Antibody Screen Negative 10/13/24 Hct, (36-47) 36.0 % 10/13/24 Hgb, (11.27-16.99) 11.80 g/dL 10/13/24 Rho(D) Type Rh positive 10/13/24 Plt Count, (157-399) 304 10^3/cmm 10/13/24 Hep Bs Antigen, (Nonreactive) Non-reactive 04/09/24 Hepatitis C Antibody, (Nonreactive) Non-reactive 04/09/24 Rubella IgG Antibody, (0.0-10.0) 24.2 IU/mL H 04/09/24 RPR, (Nonreactive) Nonreactive 04/09/24 HIV 1&2 Ab & HIV 1 Ag, (Non-Reactiv) Non-reactive 04/09/24 TSH, (0.27-4.20) 3.27 uIU/mL 04/09/24 C.trachomatis RNA (TMA), (NOT DETECTED) Not detected 02/18/23 N.gonorrhoeae RNA (TMA), (NOT DETECTED) Not detected 02/18/23 Chlamydia/GC Comment See note 02/18/23 Glucose 1 Hr 50 gm, (85-140) 129 mg/dL 08/24/24 Gest Glucose Tolerance mg/dL 04/23/23 Ser , Semi-Qnt 8551.00 mIU/mL 02/17/24 HCG, Qual, (Negative) Positive H 02/17/24 Urine Opiates Screen, (Negative) Negative ng/mL 04/09/24 Ur Barbiturates Screen, (Negative) Negative ng/mL 04/09/24 Ur Phencyclidine Scrn, (Negative) Negative ng/mL 04/09/24 Ur Amphetamines Screen, (Negative) Negative ng/mL 04/09/24 U Benzodiazepines Scrn, (Negative) Negative ng/mL 04/09/24 Urine Cocaine Screen, (Negative) Negative ng/mL 04/09/24 U Marijuana (THC) Screen, (Negative) Negative ng/mL 04/09/24 Micro Urine Specimen 09/17/24 Discharge Plan Discharge Patient Disposition: Home Condition: Stable Prescriptions: New oxycodone-acetaminophen [Percocet] 5-325 mg tablet 1 tab PO Q8H PRN (Reason: pain) Qty: 20 0RF Continued Classic 28 mg iron- 800 mcg tablet 1 tab PO 1XD Discharge Order = DC NOW: Discharge Order (Routine); Ordered 10/14/24 Ordered By: Demetrio Christianson Referrals: Domonique Renee NP [Nurse Practitioner, TILE INSPECTOR] - 10/22/24 12:45 pm Discharge Diet: Usual diet Discharge Activity: Increase activity as tolerated Patient Instructions: Depression (DC), Opioid Safety (DC), Preeclampsia and Eclampsia After Delivery (GEN), Hemorrhage (DC), OB Discharge Report, OB Food/Drug Interaction Guide, Opioid Safety, OB Home Care, OB Vaginal Deliveries - [facility], Patient Portal & [facility] Instructions, Abnormal Bleeding Discharge Attestations TILE INSPECTOR Time Spent in Discharge Care*: less than 30 min Coding Level of Care Code Acute Code for Chg Fwd Diagnoses S/P Z98.891
== END 2024-10-14 14:18 | disposition home or self-care (01) | DRG 788 ==
PROVIDERS: Admitting Provider Obstetrics & Gynecology; PCP Nurse Practitioner Family; Visit Provider Obstetrics & Gynecology
PROC: 10D00Z1 Extraction of Products of Conception, Low, Open Approach (ICD-10-PCS; CPT 59514; principal; 2024-10-13 07:00)
DX: O34.211 Maternal care for low transverse scar from previous cesarean delivery (principal); Z3A.39 39 weeks gestation of pregnancy; Z37.0 Single live birth; O99.824 Streptococcus B carrier state complicating childbirth
CPT/HCPCS: 36415; 51702; 59409; 85025; 85027; 86850; 86900; 96374; 96376; J0690; J1885; J2274; J2371; J2405; J2765; J3010; J3490; J7030; J9999

== ENCOUNTER → 2024-11-19 10:08 | Outpatient (BNVA) | payer BC, MEDICAID, SELFPAY | PROVIDERS: PCP Nurse Practitioner Family; Visit Provider Obstetrics & Gynecology | DX: Z30.9 Encounter for contraceptive management, unspecified (principal) | CPT/HCPCS: 81025 ==

== ENCOUNTER 2025-03-21 10:46 | Outpatient (CLI) | payer BC, MEDICAID, SELFPAY | END 2025-03-21 10:47 | disposition home or self-care (01) | PROVIDERS: PCP Nurse Practitioner Family; Visit Provider Obstetrics & Gynecology | DX: N91.2 Amenorrhea, unspecified (principal) | CPT/HCPCS: 84702 ==